=== PATIENT | male | born 1935 | race Caucasian/White ===

== ENCOUNTER → 2017-04-26 | Outpatient (REF) | payer MEDICARE ==
[2017-04-26 13:25] LABS: INR 1.27
== END ==
LOC: M LABDRWAD 12:23
PROVIDERS: ATTEND Internal Medicine Cardiovascular Disease
DX: I48.2 Chronic atrial fibrillation (principal)

== ENCOUNTER → 2017-05-03 | Outpatient (REF) | payer MEDICARE ==
[2017-05-03 13:10] LABS: MEAN CORPUSCULAR HEMOGLOBIN 34.5 pg (27.0-33.0); MEAN CORPUSCULAR HGB CONC 33.3 g/dl (32.0-36.5); MEAN CORPUSCULAR VOLUME 103.5 fl (80.0-96.0); PLATELET COUNT, AUTOMATED 197 10^3/uL (150-450); RED CELL DISTRIBUTION WIDTH 11.9 % (11.5-14.5)
[2017-05-03 14:22] LABS: ALBUMIN 3.7 GM/DL (3.2-5.2); ALBUMIN/GLOBULIN RATIO 1.16 (1.00-1.93); ALKALINE PHOSPHATASE 74 U/L (45-117); ALT/SGPT 17 U/L (12-78); ANION GAP 7 MEQ/L (8-16); AST/SGOT 13 U/L (7-37); BILIRUBIN,TOTAL 0.6 MG/DL (0.2-1.0); BLOOD UREA NITROGEN 17 MG/DL (7-18); CARBON DIOXIDE LEVEL 29 MEQ/L (21-32); CHLORIDE LEVEL 99 MEQ/L (98-107); CREATININE FOR GFR 1.12 MG/DL (0.70-1.30); GLOMERULAR FILTRATION RATE > 60.0 (>35); GLUCOSE, FASTING 122 MG/DL (83-110); SODIUM LEVEL 135 MEQ/L (136-145); TOTAL PROTEIN 6.9 GM/DL (6.4-8.2)
== END ==
LOC: M SFHCADAM 09:19
PROVIDERS: ATTEND Physician Assistant
DX: I48.2 Chronic atrial fibrillation (principal); I25.10 Atherosclerotic heart disease of native coronary artery without angina pectoris

== ENCOUNTER → 2017-05-10 | Outpatient (REF) | payer MEDICARE ==
[2017-05-10 12:48] LABS: INR 2.34
== END ==
LOC: M LABDRWAD 12:16 → M LAB REF 12:16
PROVIDERS: ATTEND Internal Medicine Cardiovascular Disease
DX: I48.2 Chronic atrial fibrillation (principal)

== ENCOUNTER → 2017-06-01 | Outpatient (REF) | payer MEDICARE ==
[2017-06-01 11:33] LABS: INR 2.47
== END ==
LOC: M LAB REF 10:44
PROVIDERS: ATTEND Internal Medicine Cardiovascular Disease
DX: I48.2 Chronic atrial fibrillation (principal)

== ENCOUNTER → 2017-06-11 | Outpatient (REF) | payer MEDICARE | LOC: M LABDRWAD 12:08 | DX: I48.2 Chronic atrial fibrillation (principal) | CPT/HCPCS: 85610 ==

== ENCOUNTER → 2017-06-18 | Outpatient (REF) | payer MEDICARE ==
[2017-06-18 12:38] LABS: INR 1.72; PROTHROMBIN TIME 20.7 SECONDS (12.4-14.5)
== END ==
LOC: M LABDRWAD 12:11
DX: I48.2 Chronic atrial fibrillation (principal)
CPT/HCPCS: 85610

== ENCOUNTER → 2017-06-23 | Outpatient (REF) | payer MEDICARE ==
[2017-06-23 21:59] LABS: INR 2.11; PROTHROMBIN TIME 24.4 SECONDS (12.4-14.5)
== END ==
LOC: M LABDRWAD 20:51
DX: I48.2 Chronic atrial fibrillation (principal)
CPT/HCPCS: 85610

== ENCOUNTER → 2017-07-01 | Outpatient (REF) | payer MEDICARE ==
[2017-07-01 12:42] LABS: INR 2.25; PROTHROMBIN TIME 25.7 SECONDS (12.4-14.5)
== END ==
LOC: M LABDRWAD 12:23
DX: I48.2 Chronic atrial fibrillation (principal)
CPT/HCPCS: 85610

== ENCOUNTER → 2017-07-08 | Outpatient (REF) | payer MEDICARE ==
[2017-07-08 17:06] LABS: INR 1.17; PROTHROMBIN TIME 15.1 SECONDS (12.4-14.5)
== END ==
LOC: M LAB REF 16:21
DX: I48.2 Chronic atrial fibrillation (principal)
CPT/HCPCS: 85610

== ENCOUNTER → 2017-07-15 | Outpatient (REF) | payer MEDICARE ==
[2017-07-15 14:30] LABS: INR 1.19; PROTHROMBIN TIME 15.3 SECONDS (12.4-14.5)
== END ==
LOC: M LAB REF 13:00
DX: I48.2 Chronic atrial fibrillation (principal)
CPT/HCPCS: 85610

== ENCOUNTER → 2017-07-29 | Outpatient (REF) | payer MEDICARE ==
[2017-07-29 20:08] LABS: HEMATOCRIT 35.6 % (42.0-52.0); HEMOGLOBIN 11.6 g/dl (14.0-18.0); MEAN CORPUSCULAR HEMOGLOBIN 34.4 pg (27.0-33.0); MEAN CORPUSCULAR HGB CONC 32.6 g/dl (32.0-36.5); MEAN CORPUSCULAR VOLUME 105.6 fl (80.0-96.0); PLATELET COUNT, AUTOMATED 223 10^3/uL (150-450); RED BLOOD COUNT 3.37 10^6/uL (4.30-6.10); RED CELL DISTRIBUTION WIDTH 11.9 % (11.5-14.5); WHITE BLOOD COUNT 5.3 10^3/uL (4.0-10.0)
[2017-07-29 20:13] LABS: ALBUMIN 3.9 GM/DL (3.2-5.2); ALBUMIN/GLOBULIN RATIO 1.22 (1.00-1.93); ALKALINE PHOSPHATASE 66 U/L (45-117); ALT/SGPT 15 U/L (12-78); ANION GAP 7 MEQ/L (8-16); AST/SGOT 14 U/L (7-37); BILIRUBIN,TOTAL 0.5 MG/DL (0.2-1.0); BLOOD UREA NITROGEN 16 MG/DL (7-18); CALCIUM LEVEL 8.9 MG/DL (8.8-10.2); CARBON DIOXIDE LEVEL 30 MEQ/L (21-32); CHLORIDE LEVEL 101 MEQ/L (98-107); CREATININE FOR GFR 1.01 MG/DL (0.70-1.30); GLOMERULAR FILTRATION RATE > 60.0 (>35); GLUCOSE, FASTING 94 MG/DL (70-100); POTASSIUM SERUM 4.7 MEQ/L (3.5-5.1); SODIUM LEVEL 138 MEQ/L (136-145); TOTAL PROTEIN 7.1 GM/DL (6.4-8.2)
== END ==
LOC: M SFHCADAM 11:18
DX: I48.2 Chronic atrial fibrillation (principal); I87.2 Venous insufficiency (chronic) (peripheral)
CPT/HCPCS: 80053

== ENCOUNTER → 2017-08-12 | Outpatient (REF) | payer MEDICARE ==
[2017-08-12 15:06] LABS: PROTHROMBIN TIME 22.4 SECONDS (12.4-14.5)
== END ==
LOC: M LAB REF 14:42
DX: I48.2 Chronic atrial fibrillation (principal)
CPT/HCPCS: 85610

== ENCOUNTER → 2017-12-09 | Outpatient (REF) | payer MEDICARE ==
[2017-12-09 13:08] LABS: HEMATOCRIT 34.4 % (42.0-52.0); HEMOGLOBIN 11.8 g/dl (13.5-17.5); MEAN CORPUSCULAR HEMOGLOBIN 34.6 pg (27.0-33.0); MEAN CORPUSCULAR HGB CONC 34.3 g/dl (32.0-36.5); MEAN CORPUSCULAR VOLUME 100.9 fl (80.0-96.0); PLATELET COUNT, AUTOMATED 202 10^3/uL (150-450); RED BLOOD COUNT 3.41 10^6/uL (4.30-6.10); RED CELL DISTRIBUTION WIDTH 11.9 % (11.5-14.5); WHITE BLOOD COUNT 5.8 10^3/uL (4.0-10.0)
[2017-12-09 13:52] LABS: FOLATE 10.4 NG/ML; VITAMIN B12 LEVEL 882 PG/ML
[2017-12-09 14:02] LABS: ALBUMIN 3.8 GM/DL (3.2-5.2); ALBUMIN/GLOBULIN RATIO 1.15 (1.00-1.93); ALKALINE PHOSPHATASE 74 U/L (45-117); ALT/SGPT 14 U/L (12-78); ANION GAP 10 MEQ/L (8-16); AST/SGOT 15 U/L (7-37); BILIRUBIN,TOTAL 0.6 MG/DL (0.2-1.0); BLOOD UREA NITROGEN 21 MG/DL (7-18); CALCIUM LEVEL 8.8 MG/DL (8.8-10.2); CARBON DIOXIDE LEVEL 26 MEQ/L (21-32); CHLORIDE LEVEL 97 MEQ/L (98-107); CREATININE FOR GFR 1.12 MG/DL (0.70-1.30); FREE T4 0.98 NG/DL (0.76-1.46); GLOMERULAR FILTRATION RATE > 60.0 (>35); GLUCOSE, FASTING 97 MG/DL (70-100); POTASSIUM SERUM 4.2 MEQ/L (3.5-5.1); SODIUM LEVEL 133 MEQ/L (136-145); TOTAL PROTEIN 7.1 GM/DL (6.4-8.2)
== END ==
LOC: M SFHCADAM 10:32
DX: D75.89 Other specified diseases of blood and blood-forming organs (principal); I48.2 Chronic atrial fibrillation; I25.10 Atherosclerotic heart disease of native coronary artery without angina pectoris
CPT/HCPCS: 82746

== ENCOUNTER → 2018-01-06 | Outpatient (CLI) | payer MEDICARE ==
[2018-01-06 16:40] LABS: INR 2.45; PROTHROMBIN TIME 27.1 SECONDS (12.1-14.4)
== END ==
LOC: M ADAMS 15:08
DX: I48.2 Chronic atrial fibrillation (principal)
CPT/HCPCS: 85610

== ENCOUNTER → 2018-01-20 | Outpatient (CLI) | payer MEDICARE ==
[2018-01-20 15:49] LABS: INR 2.15; PROTHROMBIN TIME 24.4 SECONDS (12.1-14.4)
== END ==
LOC: M ADAMS 14:21
DX: I48.2 Chronic atrial fibrillation (principal)
CPT/HCPCS: 85610

== ENCOUNTER → 2018-03-02 | Outpatient (REF) | payer MEDICARE ==
[2018-03-02 13:28] LABS: INR 2.65; PROTHROMBIN TIME 28.9 SECONDS (12.1-14.4)
== END ==
LOC: M LABDRWAD 12:33
DX: I48.91 Unspecified atrial fibrillation (principal)
CPT/HCPCS: 85610

== ENCOUNTER → 2018-03-16 | Outpatient (REF) | payer MEDICARE ==
[2018-03-16 18:58] LABS: ANION GAP 7 MEQ/L (8-16); BLOOD UREA NITROGEN 20 MG/DL (7-18); CALCIUM LEVEL 8.8 MG/DL (8.8-10.2); CARBON DIOXIDE LEVEL 28 MEQ/L (21-32); CHLORIDE LEVEL 98 MEQ/L (98-107); CREATININE FOR GFR 1.12 MG/DL (0.70-1.30); GLOMERULAR FILTRATION RATE > 60.0 (>35); GLUCOSE, FASTING 83 MG/DL (70-100); POTASSIUM SERUM 4.3 MEQ/L (3.5-5.1); SODIUM LEVEL 133 MEQ/L (136-145); URIC ACID 8.5 MG/DL (3.5-7.2)
== END ==
LOC: M SFHCADAM 15:17
DX: M1A.9XX1 Chronic gout, unspecified, with tophus (tophi) (principal)
CPT/HCPCS: 84550

== ENCOUNTER → 2018-03-16 | Outpatient (CLI) | payer MEDICARE | LOC: M ADAMS 15:17 | DX: M18.11 Unilateral primary osteoarthritis of first carpometacarpal joint, right hand (principal); M11.241 Other chondrocalcinosis, right hand; M19.041 Primary osteoarthritis, right hand; M25.741 Osteophyte, right hand; M1A.9XX1 Chronic gout, unspecified, with tophus (tophi) | CPT/HCPCS: 73130; 84550 ==

== ENCOUNTER → 2018-03-29 | Outpatient (CLI) | payer MEDICARE ==
[2018-03-29 20:03] LABS: PROTHROMBIN TIME 27.5 SECONDS (12.1-14.4)
== END ==
LOC: M ADAMS 14:55
DX: I48.91 Unspecified atrial fibrillation (principal)
CPT/HCPCS: 85610

== ENCOUNTER → 2018-04-12 | Outpatient (REF) | payer MEDICARE ==
[2018-04-12 13:20] LABS: URIC ACID 7.3 MG/DL (3.5-7.2)
== END ==
LOC: M SFHCADAM 11:12
DX: M1A.9XX1 Chronic gout, unspecified, with tophus (tophi) (principal)
CPT/HCPCS: 84550

== ENCOUNTER → 2018-04-26 | Outpatient (REF) | payer MEDICARE ==
[2018-04-26 19:50] LABS: INR 2.29; PROTHROMBIN TIME 25.7 SECONDS (12.1-14.4)
== END ==
LOC: M LABDRWAD 19:16
DX: I48.91 Unspecified atrial fibrillation (principal)
CPT/HCPCS: 85610

== ENCOUNTER → 2018-05-26 | Outpatient (REF) | payer MEDICARE ==
[2018-05-26 20:19] LABS: INR 3.52; PROTHROMBIN TIME 36.1 SECONDS (12.1-14.4)
== END ==
LOC: M LABDRWAD 10:14
DX: I48.91 Unspecified atrial fibrillation (principal)
CPT/HCPCS: 85610

== ENCOUNTER → 2018-06-21 | Outpatient (REF) | payer MEDICARE ==
[2018-06-21 21:06] LABS: INR 2.66; PROTHROMBIN TIME 28.9 SECONDS (12.1-14.4)
== END ==
LOC: M LABDRWAD 19:40
PROVIDERS: ATTEND Internal Medicine Cardiovascular Disease
DX: I48.91 Unspecified atrial fibrillation (principal)

== ENCOUNTER → 2018-06-30 | Outpatient (REF) | payer MEDICARE ==
[2018-06-30 19:36] LABS: RHEUMATOID FACTOR QUANT < 10.0 IU/ML (<15.0); URIC ACID 5.3 MG/DL (3.5-7.2)
== END ==
LOC: M SFHCADAM 11:47
PROVIDERS: ATTEND Physician Assistant
DX: M1A.9XX1 Chronic gout, unspecified, with tophus (tophi) (principal); M15.9 Polyosteoarthritis, unspecified

== ENCOUNTER → 2018-07-21 | Outpatient (REF) | payer MEDICARE ==
[2018-07-21 20:16] LABS: INR 2.18; PROTHROMBIN TIME 24.7 SECONDS (12.1-14.4)
== END ==
LOC: M LAB REF 09:59
PROVIDERS: ATTEND Internal Medicine Cardiovascular Disease
DX: I48.91 Unspecified atrial fibrillation (principal)

== ENCOUNTER → 2018-08-18 | Outpatient (REF) | payer MEDICARE ==
[2018-08-18 12:57] LABS: INR 2.39; PROTHROMBIN TIME 26.6 SECONDS (12.1-14.4)
== END ==
LOC: M LABDRWAD 12:35
PROVIDERS: ATTEND Internal Medicine Cardiovascular Disease
DX: I48.91 Unspecified atrial fibrillation (principal)

== ENCOUNTER → 2018-09-14 | Outpatient (REF) | payer MEDICARE ==
[2018-09-14 17:45] LABS: INR 3.2; PROTHROMBIN TIME 33.5 SECONDS (12.1-14.4)
== END ==
LOC: M LABDRWAD 14:36
PROVIDERS: ATTEND Internal Medicine Cardiovascular Disease
DX: I48.2 Chronic atrial fibrillation (principal)

== ENCOUNTER → 2018-10-14 | Outpatient (REF) | payer MEDICARE ==
[2018-10-14 13:10] LABS: INR 2.86; PROTHROMBIN TIME 30.6 SECONDS (12.1-14.4)
== END ==
LOC: M LABDRWAD 12:08
PROVIDERS: ATTEND Internal Medicine Cardiovascular Disease
DX: I48.91 Unspecified atrial fibrillation (principal)

== ENCOUNTER → 2018-11-15 | Outpatient (REF) | payer MEDICARE ==
[2018-11-15 16:20] LABS: INR 2.29; PROTHROMBIN TIME 25.7 SECONDS (12.1-14.4)
== END ==
LOC: M LABDRWAD 13:01
PROVIDERS: ATTEND Internal Medicine Cardiovascular Disease
DX: I48.91 Unspecified atrial fibrillation (principal)

== ENCOUNTER → 2018-11-15 | Outpatient (REF) | payer MEDICARE ==
[2018-11-15 13:19] LABS: HEMATOCRIT 34.3 % (42.0-52.0); HEMOGLOBIN 11.4 g/dl (13.5-17.5); MEAN CORPUSCULAR HEMOGLOBIN 33.8 pg (27.0-33.0); MEAN CORPUSCULAR HGB CONC 33.2 g/dl (32.0-36.5); MEAN CORPUSCULAR VOLUME 101.8 fl (80.0-96.0); PLATELET COUNT, AUTOMATED 184 10^3/uL (150-450); RED BLOOD COUNT 3.37 10^6/uL (4.30-6.10); WHITE BLOOD COUNT 5.8 10^3/uL (4.0-10.0)
[2018-11-15 14:09] LABS: ALBUMIN 3.7 GM/DL (3.2-5.2); ALT/SGPT 16 U/L (12-78); BILIRUBIN,TOTAL 0.6 MG/DL (0.2-1.0); BLOOD UREA NITROGEN 22 MG/DL (7-18); CALCIUM LEVEL 8.8 MG/DL (8.8-10.2); CARBON DIOXIDE LEVEL 27 MEQ/L (21-32); CHLORIDE LEVEL 100 MEQ/L (98-107); CREATININE FOR GFR 1.21 MG/DL (0.70-1.30); GLOMERULAR FILTRATION RATE > 60.0 (>35); GLUCOSE, FASTING 92 MG/DL (70-100); SODIUM LEVEL 136 MEQ/L (136-145); TOTAL PROTEIN 7.3 GM/DL (6.4-8.2)
== END ==
LOC: M SFHCADAM 11:39
PROVIDERS: ATTEND Physician Assistant
DX: I48.2 Chronic atrial fibrillation (principal); I25.10 Atherosclerotic heart disease of native coronary artery without angina pectoris; M15.9 Polyosteoarthritis, unspecified

== ENCOUNTER → 2018-11-30 | Outpatient (REF) | payer MEDICARE ==
[2018-11-30 13:08] LABS: CALCIUM LEVEL 9.4 MG/DL (8.8-10.2); CREATININE FOR GFR 1.31 MG/DL (0.70-1.30); GLOMERULAR FILTRATION RATE 55.4 (>35)
== END ==
LOC: M SFHCADAM 10:10
PROVIDERS: ATTEND Physician Assistant
DX: I87.2 Venous insufficiency (chronic) (peripheral) (principal)

== ENCOUNTER → 2019-01-18 | Outpatient (REF) | payer MEDICARE ==
[2019-01-18 20:50] LABS: INR 1.95
== END ==
LOC: M LABDRWAD 19:24
PROVIDERS: ATTEND Internal Medicine Cardiovascular Disease
DX: I48.2 Chronic atrial fibrillation (principal)

== ENCOUNTER → 2019-02-16 | Outpatient (REF) | payer MEDICARE ==
[2019-02-16 13:20] LABS: INR 2.64; PROTHROMBIN TIME 28.1 SECONDS (11.8-14.0)
== END ==
LOC: M LABDRWAD 12:10
PROVIDERS: ATTEND Internal Medicine Cardiovascular Disease
DX: I48.2 Chronic atrial fibrillation (principal)

== ENCOUNTER → 2019-03-02 | Outpatient (CLI) | payer MEDICARE ==
--- NOTE | 2019-03-02 16:28 | REP ---
ULTRASOUND ANTERIOR WALL OF PELVIS: Real-time sonographic evaluation of the anterior wall of the pelvis performed on the right at the site of a suspected hernia. There is an anterior pelvic wall hernia near the pubis. Peristalsing bowel loops are seen protruding through the abdominal wall. The defect measures 2.5 x 3.5 cm.
== END ==
LOC: M WHC 12:46
PROVIDERS: ATTEND Physician Assistant
DX: K43.9 Ventral hernia without obstruction or gangrene (principal); K40.90 Unilateral inguinal hernia, without obstruction or gangrene, not specified as recurrent

== ENCOUNTER → 2019-03-13 | Outpatient (REF) | payer MEDICARE ==
[~2019-03-13] MED LIST: ALLO10TA PO; CEPH500C PO; COQ1100C4 PO; D31000TA PO; FISH1000 PO; KETO2CR EXT; LOSA25TA14 PO; METO1TAB7 PO; MONT10TA2 PO; MYRB25TA PO; NORC1TAB8 PO; PRAV40TA2 PO; RISP0.5T21 PO; SPIR-10 PO; TORS100T PO; TRIA1OI TOP; WARF-23 PO; WARF4TAB52 PO
[2019-03-13 20:00] LABS: INR 1.56; PROTHROMBIN TIME 18.4 SECONDS (11.8-14.0)
== END ==
LOC: M LABDRWAD 19:08
PROVIDERS: ATTEND Internal Medicine Cardiovascular Disease
DX: I48.2 Chronic atrial fibrillation (principal)

== ENCOUNTER → 2019-03-29 | Outpatient (REF) | payer MEDICARE ==
[2019-03-29 19:51] LABS: INR 2.76
== END ==
LOC: M LABDRWAD 19:16
PROVIDERS: ATTEND Internal Medicine Cardiovascular Disease
DX: I48.20 Chronic atrial fibrillation, unspecified (principal)

== ENCOUNTER 2019-05-04 23:25 | Observation (INO) | payer MEDICARE ==
[~2019-05-04] VITALS: Ht 182.9 cm; Wt 90.2 kg
[2019-05-05 00:18] LABS: BASO % 0.2 % (0.0-1.0); EOS # 0.1 10^3/uL (0.0-0.5); EOS % 0.8 % (0.0-3.0); HEMATOCRIT 33.8 % (42.0-52.0); HEMOGLOBIN 11.2 g/dl (13.5-17.5); LYMPH # 0.9 10^3/uL (1.5-5.0); LYMPH % 10.8 % (24.0-44.0); MEAN CORPUSCULAR HEMOGLOBIN 33.9 pg (27.0-33.0); MEAN CORPUSCULAR HGB CONC 33.1 g/dl (32.0-36.5); MEAN CORPUSCULAR VOLUME 102.4 fl (80.0-96.0); MONO # 1.1 10^3/uL (0.0-0.8); MONO % 12.2 % (0.0-5.0); NEUTROPHILS # 6.6 10^3/uL (1.5-8.5); NEUTROPHILS % 75.7 % (36.0-66.0); PLATELET COUNT, AUTOMATED 203 10^3/uL (150-450); WHITE BLOOD COUNT 8.7 10^3/uL (4.0-10.0)
--- NOTE | 2019-05-05 00:21 | REPVR ---
PROCEDURE INFORMATION: Exam: CT Head Without Contrast Exam date and time: 05/04/2019 12:05 AM Age: 83 years old Clinical history: Pain; Other: Fall; Additional info: Fall/coumadin TECHNIQUE: Imaging protocol: Computed tomography of the head without contrast. Radiation optimization: All CT scans at this facility use at least one of these dose optimization techniques: automated exposure control; mA and/or kV adjustment per patient size (includes targeted exams where dose is matched to clinical indication); or iterative reconstruction. COMPARISON: No relevant prior studies available. FINDINGS: Brain: There is diffuse cortical atrophy and hypoattenuation of the deep white matter. No acute hemorrhage. Ventricles: Unremarkable. No ventriculomegaly. Bones/joints: Unremarkable. No acute fracture. Sinuses: Unremarkable as visualized. No acute sinusitis. Mastoid air cells: Unremarkable as visualized. No mastoid effusion. Soft tissues: Unremarkable. IMPRESSION: No acute intracranial process. 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 Electronically signed by: Albert Cohen On 05/05/2019 00:21:07 AM
[2019-05-05 00:33] LABS: INR 2.76
[2019-05-05 00:34] LABS: PARTIAL THROMBOPLASTIN TIME 63.1 SECONDS (25.0-38.4)
[2019-05-05] MEDS ORDERED: KETO2CR EXT (00:34)
[2019-05-05] MEDS ORDERED: PRAV40TA2 PO (00:34)
[2019-05-05] MEDS ORDERED: ALLO10TA PO (00:34)
[2019-05-05] MEDS ORDERED: MYRB25TA PO (00:34)
[2019-05-05] MEDS ORDERED: METO1TAB7 PO (00:34)
[2019-05-05] MEDS ORDERED: MONT10TA4 PO (00:34)
[2019-05-05] MEDS ORDERED: TORS100T PO (00:34)
[2019-05-05] MEDS ORDERED: LOSA25TA14 PO (00:34)
[2019-05-05] MEDS ORDERED: CEPH500C PO (00:34)
[2019-05-05] MEDS ORDERED: WARF4TAB52 PO (00:34)
[2019-05-05] MEDS ORDERED: SPIR-10 PO (00:34)
[2019-05-05] MEDS ORDERED: WARF-23 PO (00:34)
[2019-05-05] MEDS ORDERED: FISH1000 PO (00:37)
[2019-05-05] MEDS ORDERED: D31000TA PO (00:37)
[2019-05-05] MEDS ORDERED: NORC1TAB8 PO (00:37)
[2019-05-05] MEDS ORDERED: COQ1100C4 PO (00:37)
[2019-05-05 00:38] LABS: CALCIUM LEVEL 8.7 MG/DL (8.8-10.2); CREATININE FOR GFR 1.4 MG/DL (0.70-1.30); GLOMERULAR FILTRATION RATE 51.3 (>35)
--- NOTE | 2019-05-05 01:46 | HPEPDOC ---
General Date of Admission 05/05/19 Date of Service: May 05, 2019 Chief Complaint The patient is a 83-year-old male admitted with a reason for visit of FALL. Source: Patient, Family Exam Limitations: No limitations Timing/Duration: Day(s) Severity: Mild Associated Symptoms: Mechanical fall History of Present Illness Patient is 83 years old male with past medical history of coronary artery diseases, atrial fibrillation on Coumadin, GABG, pacemaker presented hospital after increased frequency of mechanical fall. Patient stated that for past 2 days he had a few mechanical falls when he changed position of his body. Patient denied any syncope, loss of consciousness, seizures. Patient described that he developed weakness in his legs and he fell. Patient lives in assisted living facility by himself. Patient didn't have any fever, chills, nausea, vomiting, diarrhea or dysuria. According to family members his physical condition for past few months declined. In emergency room head CT was ordered and didn't show any acute bleed, blood workup did not reveal leukocytosis. Patient is normotensive with heart rate around 75. Home Medications Scheduled Allopurinol (Allopurinol) 100 Mg Tablet, 100 MG PO DAILY, (Reported) Cephalexin (Cephalexin) 500 Mg Capsule, 500 MG PO BID, (Reported) Cholecalciferol (Vitamin D3) (Vitamin D3) 1,000 Unit Tablet, 1,000 UNIT PO DAILY, (Reported) Ketoconazole (Ketoconazole) 15 Gm Cream..g., 1 DOSE EXT BID, (Reported) APPLIES UNDER STOMACH FOLDS Losartan Potassium (Losartan Potassium) 25 Mg Tablet, 25 MG PO DAILY, (Reported) Metoprolol Succinate (Metoprolol Succinate) 50 Mg Tab.er.24h, 50 MG PO DAILY, (Reported) Mirabegron (Myrbetriq) 25 Mg Tab.er.24h, 25 MG PO DAILY, (Reported) Montelukast Sodium (Montelukast Sodium) 10 Mg Tablet, 10 MG PO QPM, (Reported) TAKES AT 1800 Crump-3 Fatty Acids/Fish Oil (Fish Oil 1,000 mg Capsule) 1 Each Capsule, 1,000 MG PO QPM, (Reported) TAKES AT 1800 Pravastatin Sodium (Pravastatin Sodium) 40 Mg Tablet, 40 MG PO QPM, (Reported) TAKES AT 1800 Spironolactone (Spironolactone) 25 Mg Tablet, 25 MG PO DAILY, (Reported) Torsemide (Torsemide) 100 Mg Tablet, 100 MG PO DAILY, (Reported) Ubidecarenone (Co Q-10) 100 Mg Capsule, 100 MG PO QPM, (Reported) TAKES AT 1800 Warfarin Sodium (Warfarin Sodium) 1 Mg Tablet, 1 MG PO QPM, (Reported) TAKES WITH 5MG FOR 6MG TOTAL AT 1800 Warfarin Sodium (Warfarin Sodium) 5 Mg Tablet, 5 MG PO QPM, (Reported) TAKES WITH 1MG FOR 6MG TOTAL AT 1800 Scheduled PRN Hydrocodone/Acetaminophen ([place] 7.5-325 Tablet) 1 Each Tablet, 1 TAB PO Q6H PRN for PAIN, (Reported) Allergies Coded Allergies: No Known Allergies (Unverified , 05/04/19) Past Medical History Medical History coronary artery diseases, atrial fibrillation on Coumadin, GABG, pacemaker, hypertension, peripheral vascular diseases, mitral wall prolapse Surgical History CABG, mitral valve prolapse repair, pacemaker placement Family History I reviewed family history and found unremarkable Social History * Smoker: former Smoker Alcohol: occationally Drugs: denies A-FIB/CHADSVASC A-FIB History Current/History of A-Fib/PAF?: Yes Current PO Anticoag Therapy: Yes Review of Systems Constitutional: Reports: Weakness; Denies: Chills, Fever Eyes: Denies: Pain, Vision change ENT: Denies: Head Aches, Ear Pain Skin: Denies: Rash, Lesions Pulmonary: Denies: Dyspnea, Cough Cardiovascular: Denies: Chest Pain, Palpitations Gastrointestinal: Denies: Nausea, Vomiting Genitourinary: Denies: Dysuria, Frequency Hematologic: Denies: Bruising, Bleeding Excessively Endocrine: Denies: Polydipsia, Polyphagia Musculoskeletal: Denies: Neck Pain, Back Pain Neurological: Denies: Numbness, Change in speech Psych: Reports: Mood Normal Physical Examination General Exam: Positive: Alert, Cooperative Eye Exam: Positive: PERRLA, Conjunctiva & lids normal ENT Exam: Positive: Atraumatic, Mucous membr. moist/pink Neck Exam: Positive: Supple; Negative: JVD Chest Exam: Positive: Clear to auscultation Heart Exam: Positive: Irregular Rhythm; Negative: Rate Normal Telemetry: Positive: Atrial fibrillation Abdomen Exam: Positive: Normal bowel sounds Extremity Exam: Negative: Clubbing, Cyanosis Skin Exam: Positive: Nl turgor and temperature Neuro Exam: Positive: Normal Gait, Strength at 5/5 X4 ext, Cranial Nerves 3-12 NL Psych Exam: Positive: Mental status NL Vital Signs Vital Signs Date Time Temp Pulse Resp B/P (MAP) Pulse Ox O2 Delivery O2 Flow Rate FiO2 05/05/19 00:53 70 19 117/57 (77) 97 Room Air 05/04/19 23:37 98.8 Laboratory Data Labs 24H Laboratory Tests 2 05/05/19 00:04: Immature Granulocyte % (Auto) 0.3, Neutrophils (%) (Auto) 75.7H, Lymphocytes (%) (Auto) 10.8L, Monocytes (%) (Auto) 12.2H, Eosinophils (%) (Auto) 0.8, Basophils (%) (Auto) 0.2, Neutrophils # (Auto) 6.6, Lymphocytes # (Auto) 0.9L, Monocytes # (Auto) 1.1H, Eosinophils # (Auto) 0.1, Basophils # (Auto) 0.0, Nucleated Red Blood Cells % (auto) 0.0, Prothrombin Time 29.0H, Prothromb Time International Ratio 2.76, Activated Partial Thromboplast Time 63.1H, Anion Gap 10, Glomerular Filtration Rate 51.3, Calcium Level 8.7L CBC/BMP Laboratory Tests 05/05/19 00:04 Assessment/Plan Patient is 83 years old male with past medical history of coronary artery diseases, atrial fibrillation on Coumadin, GABG, pacemaker presented hospital after increased frequency of mechanical fall. Patient stated that for past 2 days he had a few mechanical falls when he changed position of his body. Problems (1) Unable to ambulate Status: Chronic Problem Text: Most likely secondary to deconditioning patient developed frequent falls Patient does not have fever, chills, leukocytosis, no any focal deficiency or electrolytes abnormalities. PT/OT evaluation (2) Impaired activities of daily living Status: Chronic Problem Text: See above Plan / VTE VTE Prophylaxis Ordered?: Yes PAT SALGADO DO May 05, 2019 01:46
[2019-05-05 03:31] VITALS: BP 136/62
[2019-05-05 07:43] VITALS: BP 133/64
[2019-05-05] MEDS ORDERED: KETOCONAZOLE 2% CREAM EXT SCH (09:00)
[2019-05-05] MEDS: LOSARTAN 25 MG TAB PO SCH (09:11)
[2019-05-05] MEDS: VITAMIN D 1,000 INTERNATIONAL UNITS TABLET PO SCH (09:11)
[2019-05-05] MEDS: SPIRONOLACTONE 25 MG TAB PO SCH (09:11)
[2019-05-05] MEDS: allopurinoL 100 MG TAB PO SCH (09:11)
[2019-05-05] MEDS: TORSEMIDE 100 MG TAB PO SCH (09:11)
[2019-05-05] MEDS: METOPROLOL SUCC (TopROL XL) 50MG **XL** TAB PO SCH (09:12)
[2019-05-05 12:00] VITALS: BP 136/60
--- NOTE | 2019-05-05 13:12 | ECGEPIP ---
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
--- NOTE | 2019-05-05 13:44 | IPNPDOC ---
Subjective Date Seen The patient was seen on 05/05/19. Subjective Chief Complaint/HPI No complaints today Constitutional: Denies: Chills, Fever Pulmonary: Denies: Dyspnea, Cough Gastrointestinal: Denies: Nausea, Vomiting, Abdominal Pain Genitourinary: Denies: Dysuria Objective Physical Examination General Exam: Positive: Alert, Cooperative, No Acute Distress Neck Exam: Positive: Supple; Negative: JVD Chest Exam: Positive: Clear to auscultation; Negative: Rales, Rhonchi, Wheezing Heart Exam: Positive: Irregular Rhythm; Negative: Rate Normal Telemetry: Positive: Atrial fibrillation Abdomen Exam: Positive: Normal bowel sounds, Soft; Negative: Tenderness Extremity Exam: Positive: Edema, Other (Right great toe with gouty ulceration on dorsal aspect. Slight surrounding erythema); Negative: Clubbing, Cyanosis Skin Exam: Positive: Nl turgor and temperature, Other skin issue (Localized patch of raised erythematousj confluent papules in suprapubic area. Bullseye lesion on left proximal medial thigh/groin region) Psych Exam: Positive: Mental status NL Assessment /Plan Problems (1) Rash Status: Acute Problem Text: B inner proximal thighs (kissing lesions) and anterior abdomen at diaper line favor bullous impetigo > tinea (partially rxed c cephalexin, keto cr) c acute eczematous rxn 2 infection/irritant dermatitis (2 incontinent urine) 05/05 + cephalo BID, Lotrisone BID (2) Frequent falls Status: Acute Problem Text: per history paroxysmal episodes of weakness, favoring positional change favor orthostatic hypotension (2 , high dose diuretic dose +/- autonomic dysfx 2 PD-shuffling gait c mild cogwheel rigidity) 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 Garg GEt plain film to evaluate for bony involvement (4) Chronic systolic CHF (congestive heart failure) Status: Chronic Response to Treatment: Stable Problem Text: Euvolemic on HD torse 100, rosibel 25, met suc 50 (5) CAD (coronary artery disease) Status: Chronic Response to Treatment: Stable (6) Atrial fibrillation Status: Chronic Response to Treatment: Stable Problem Text: AC VKA 05/05 2.8 RC met suc (7) CKD (chronic kidney disease), stage III Status: Chronic Response to Treatment: Stable Problem Text: at baseline cr ~1.3 Plan/VTE VTE Prophylaxis Ordered?: Yes (Coumadin) Disposition Get PT - if safe for d/c will send home, but may need placement VS, I&O, 24H, Fishbone Vital Signs/I&O Vital Signs Date Time Temp Pulse Resp B/P (MAP) Pulse Ox O2 Delivery O2 Flow Rate FiO2 05/05/19 12:00 97.6 69 18 136/60 (85) 96 Room Air Laboratory Data 24H LABS Laboratory Tests 2 05/05/19 00:04: Immature Granulocyte % (Auto) 0.3, Neutrophils (%) (Auto) 75.7H, Lymphocytes (%) (Auto) 10.8L, Monocytes (%) (Auto) 12.2H, Eosinophils (%) (Auto) 0.8, Basophils (%) (Auto) 0.2, Neutrophils # (Auto) 6.6, Lymphocytes # (Auto) 0.9L, Monocytes # (Auto) 1.1H, Eosinophils # (Auto) 0.1, Basophils # (Auto) 0.0, Nucleated Red Blood Cells % (auto) 0.0, Prothrombin Time 29.0H, Prothromb Time International Ratio 2.76, Activated Partial Thromboplast Time 63.1H, Anion Gap 10, Glomerular Filtration Rate 51.3, Calcium Level 8.7L CBC/BMP Laboratory Tests 05/05/19 00:04 FREDERIC BOB PA-C May 05, 2019 13:44 Jus Cole M.D. May 05, 2019 16:55
[2019-05-05 16:00] VITALS: BP 144/64
--- NOTE | 2019-05-05 16:22 | REP ---
Four views right foot: 05/05/2019. Indication: Right foot pain. Comparison: None. Findings: No definite erosive osseous lesions are detected. Extensive osteoarthritic findings are present predominately involving the right great toe. There is no evidence of acute fracture. Atherosclerotic peripheral vascular disease is noted. Diffuse osteopenia is present. Multiple surgical clips are noted within the peritibial region. Impression: No definite osteomyelitis. Extensive degenerative sequelae of predominately involving the right great toe as described. Electronically Signed by Clayton Espinal DO 05/05/2019 04:14 P
[2019-05-05] MEDS: MONTELUKAST 10 MG TAB PO SCH (18:28)
[2019-05-05] MEDS: WARFARIN SOD 5 MG TAB PO SCH (18:28)
[2019-05-05] MEDS: WARFARIN SOD 1 MG TAB PO SCH (18:28)
[2019-05-05] MEDS: PRAVASTATIN 20 MG TAB PO SCH (18:28)
[2019-05-05] MEDS: CEPHALEXIN 500 MG CAP PO SCH (20:25)
[2019-05-05] MEDS: CLOTRIMAZOLE 1% TOPICAL CREAM 30GM TOP SCH (20:26)
[2019-05-05] MEDS: TRIAMCINOLONE ACET 0.1% OINTMENT 15 GM TOP SCH (20:40)
[2019-05-05] MEDS ORDERED: TRIAMCINOLONE ACET 0.1% OINTMENT 80 GM TOP SCH (21:00)
[2019-05-06] VITALS: BP 114/55
[2019-05-06 06:19] LABS: HEMATOCRIT 31.2 % (42.0-52.0); HEMOGLOBIN 10.6 g/dl (13.5-17.5); MEAN CORPUSCULAR HEMOGLOBIN 34.5 pg (27.0-33.0); MEAN CORPUSCULAR VOLUME 101.6 fl (80.0-96.0); PLATELET COUNT, AUTOMATED 193 10^3/uL (150-450); RED BLOOD COUNT 3.07 10^6/uL (4.30-6.10); WHITE BLOOD COUNT 5.4 10^3/uL (4.0-10.0)
[2019-05-06 06:30] LABS: INR 2.31; PROTHROMBIN TIME 25.2 SECONDS (11.8-14.0)
[2019-05-06 06:37] LABS: BLOOD UREA NITROGEN 28 MG/DL (7-18); CALCIUM LEVEL 8.5 MG/DL (8.8-10.2); CARBON DIOXIDE LEVEL 26 MEQ/L (21-32); CHLORIDE LEVEL 101 MEQ/L (98-107); CREATININE FOR GFR 1.06 MG/DL (0.70-1.30); GLOMERULAR FILTRATION RATE > 60.0 (>35); GLUCOSE, FASTING 86 MG/DL (70-100); MAGNESIUM LEVEL 2.1 MG/DL (1.8-2.4); POTASSIUM SERUM 3.4 MEQ/L (3.5-5.1); SODIUM LEVEL 135 MEQ/L (136-145)
[2019-05-06 08:00] VITALS: BP 116/56
[2019-05-06] MEDS: VITAMIN D 1,000 INTERNATIONAL UNITS TABLET PO SCH (09:24)
[2019-05-06] MEDS: CEPHALEXIN 500 MG CAP PO SCH ×2 (09:25→20:17)
[2019-05-06] MEDS: METOPROLOL SUCC (TopROL XL) 50MG **XL** TAB PO SCH (09:25)
[2019-05-06] MEDS: TORSEMIDE 100 MG TAB PO SCH (09:25)
[2019-05-06] MEDS: TRIAMCINOLONE ACET 0.1% OINTMENT 15 GM TOP SCH ×2 (09:26→20:17)
[2019-05-06] MEDS: allopurinoL 100 MG TAB PO SCH (09:26)
[2019-05-06] MEDS: LOSARTAN 25 MG TAB PO SCH (09:26)
[2019-05-06] MEDS: SPIRONOLACTONE 25 MG TAB PO SCH (09:27)
[2019-05-06] MEDS: CLOTRIMAZOLE 1% TOPICAL CREAM 30GM TOP SCH ×2 (09:27→20:17)
[2019-05-06] MEDS ORDERED: POTASSIUM CHLORIDE 10 MEQ SR TABLET PO ONE (10:00)
[2019-05-06 12:00] VITALS: BP 125/57
[2019-05-06 14:00] VITALS: BP 122/60
[2019-05-06] MEDS: WARFARIN SOD 5 MG TAB PO SCH (17:35)
[2019-05-06] MEDS: WARFARIN SOD 1 MG TAB PO SCH (17:35)
[2019-05-06] MEDS: PRAVASTATIN 20 MG TAB PO SCH (17:35)
[2019-05-06] MEDS: MONTELUKAST 10 MG TAB PO SCH (17:35)
--- NOTE | 2019-05-06 19:26 | IPNPDOC ---
Subjective Date Seen The patient was seen on 05/06/19. Subjective Chief Complaint/HPI Mr. Mujica had a P/T evaluation done yesterday that determined that at present he is not safe for discharge and should go to rehab after he is medically cleared. His thigh lesions seem to be improving. There are no other major complaints. General: Reports: Normal Appetite Skin: Reports: Rash (reportedly improving some) Pulmonary: Denies: Dyspnea, Cough Cardiovascular: Denies: Chest Pain, Palpitations Genitourinary: Denies: Dysuria Psych: Reports: Mood Normal Objective Physical Examination General Exam: Positive: Alert, Cooperative (laying in bed resting when I entered the room), No Acute Distress Eye Exam: Positive: Conjunctiva & lids normal; Negative: Sclera icteric ENT Exam: Positive: Mucous membr. moist/pink Neck Exam: Positive: Supple; Negative: Lymphadenopathy Chest Exam: Positive: Clear to auscultation; Negative: Rhonchi, Wheezing Heart Exam: Positive: Irregular Rhythm; Negative: Rate Normal Telemetry: Positive: Atrial fibrillation Abdomen Exam: Positive: Normal bowel sounds, Soft; Negative: Tenderness Extremity Exam: Positive: Edema, Other (Right great toe with gouty ulceration on dorsal aspect. Slight surrounding erythema); Negative: Clubbing, Cyanosis Skin Exam: Positive: Nl turgor and temperature, Other skin issue (Localized patch of raised erythematous confluent papules in suprapubic area. Bullseye lesion on left proximal medial thigh/groin region) Psych Exam: Positive: Mental status NL Assessment /Plan Problems (1) Rash Status: Acute Problem Text: B inner proximal thighs (kissing lesions) and anterior abdomen at diaper line favor bullous impetigo > tinea (partially rxed c cephalexin, keto cr) c acute eczematous rxn 2 infection/irritant dermatitis (2 incontinent urine) 05/05 + cephalo BID, Lotrisone BID (2) Frequent falls Status: Acute Problem Text: 05/06 - P/T has recommended additional therapy after he is medical stabilized. 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 Garg GEt plain film to evaluate for bony involvement (4) Chronic systolic CHF (congestive heart failure) Status: Chronic Response to Treatment: Stable Problem Text: Euvolemic on HD torse 100, rosibel 25, met suc 50 (5) CAD (coronary artery disease) Status: Chronic Response to Treatment: Stable (6) Atrial fibrillation Status: Chronic Response to Treatment: Stable Problem Text: AC VKA 05/05 2.8 RC met suc (7) CKD (chronic kidney disease), stage III Status: Chronic Response to Treatment: Stable Problem Text: at baseline cr ~1.3 Plan/VTE VTE Prophylaxis Ordered?: Yes (Coumadin) VS, I&O, 24H, Fishbone Vital Signs/I&O Vital Signs Date Time Temp Pulse Resp B/P (MAP) Pulse Ox O2 Delivery O2 Flow Rate FiO2 05/06/19 14:00 97.6 78 16 122/60 (80) 99 Room Air I&O- Last 24 Hours up to 6 AM 05/06/19 05:59 Intake Total 1350 ml Output Total 1250 ml Balance 100 ml Laboratory Data 24H LABS Laboratory Tests 2 05/06/19 05:59: Nucleated Red Blood Cells % (auto) 0.0, Prothrombin Time 25.2H, Prothromb Time International Ratio 2.31, Anion Gap 8, Glomerular Filtration Rate > 60.0, Calcium Level 8.5L, Magnesium Level 2.1 CBC/BMP Laboratory Tests 05/06/19 05:59 Chris Anne MD May 06, 2019 19:26
[2019-05-06 22:00] VITALS: BP 129/71
[2019-05-07 00:06] LABS: Lyme Disease IgG/IgM Antibodie <0.91 ISR (0.00-0.90); Lyme Disease IgM Ab Quantitati <0.80 index (0.00-0.79)
[2019-05-07 06:00] VITALS: BP 127/76
[2019-05-07 06:13] LABS: HEMATOCRIT 31.8 % (42.0-52.0); HEMOGLOBIN 10.6 g/dl (13.5-17.5); MEAN CORPUSCULAR HEMOGLOBIN 34.4 pg (27.0-33.0); MEAN CORPUSCULAR HGB CONC 33.3 g/dl (32.0-36.5); MEAN CORPUSCULAR VOLUME 103.2 fl (80.0-96.0); PLATELET COUNT, AUTOMATED 214 10^3/uL (150-450); RED BLOOD COUNT 3.08 10^6/uL (4.30-6.10); WHITE BLOOD COUNT 5.6 10^3/uL (4.0-10.0)
[2019-05-07 06:38] LABS: ALBUMIN 2.9 GM/DL (3.2-5.2); ALT/SGPT 12 U/L (12-78); BILIRUBIN,TOTAL 0.7 MG/DL (0.2-1.0); BLOOD UREA NITROGEN 23 MG/DL (7-18); CALCIUM LEVEL 8.6 MG/DL (8.8-10.2); CARBON DIOXIDE LEVEL 29 MEQ/L (21-32); CHLORIDE LEVEL 100 MEQ/L (98-107); CREATININE FOR GFR 1.12 MG/DL (0.70-1.30); GLOMERULAR FILTRATION RATE > 60.0 (>35); GLUCOSE, FASTING 90 MG/DL (70-100); POTASSIUM SERUM 3.6 MEQ/L (3.5-5.1); SODIUM LEVEL 136 MEQ/L (136-145); TOTAL PROTEIN 6.9 GM/DL (6.4-8.2)
[2019-05-07] MEDS: allopurinoL 100 MG TAB PO SCH (09:04)
[2019-05-07] MEDS: SPIRONOLACTONE 25 MG TAB PO SCH (09:04)
[2019-05-07] MEDS: TORSEMIDE 100 MG TAB PO SCH (09:04)
[2019-05-07] MEDS: CEPHALEXIN 500 MG CAP PO SCH ×2 (09:04→20:36)
[2019-05-07] MEDS: VITAMIN D 1,000 INTERNATIONAL UNITS TABLET PO SCH (09:04)
[2019-05-07] MEDS: METOPROLOL SUCC (TopROL XL) 50MG **XL** TAB PO SCH (09:05)
[2019-05-07] MEDS: LOSARTAN 25 MG TAB PO SCH (09:05)
[2019-05-07] MEDS: TRIAMCINOLONE ACET 0.1% OINTMENT 15 GM TOP SCH ×2 (09:06→20:36)
[2019-05-07] MEDS: CLOTRIMAZOLE 1% TOPICAL CREAM 30GM TOP SCH ×2 (09:06→20:36)
[2019-05-07 14:00] VITALS: BP 130/65
--- NOTE | 2019-05-07 17:38 | IPN ---
DATE: 05/07/2019 José is seen with his son and [id number]. I do not have previous concerns with his rash, but per description and the patient's assessment it has gotten significantly better on his current regimen. Lyme test was negative. PHYSICAL EXAMINATION: Afebrile. Vital signs stable. 138/76, oxygen saturation 99% on room air. GENERAL APPEARANCE: Alert, conversant, visiting with family. His rash looks improved by description compared to previous assessments. LABORATORIES: Complete blood count (CBC) unremarkable. Electrolytes unremarkable. PLAN: At this point, he looks like he has achieved maximal medical improvement with his rash, frequent falls, systolic congestive heart failure (CHF) and atrial fibrillation. He is currently living at [facility], but I am not sure that he is well enough to return to that. I will ask for a home safety evaluation tomorrow. Family would like patient and family services (PFS) to contact them tomorrow as they would like this patient placed at [facility] if he no longer can stay at [facility]. This disposition can be attended to tomorrow.
[2019-05-07] MEDS: MONTELUKAST 10 MG TAB PO SCH (17:50)
[2019-05-07] MEDS: PRAVASTATIN 20 MG TAB PO SCH (17:50)
[2019-05-07] MEDS: WARFARIN SOD 5 MG TAB PO SCH (17:50)
[2019-05-07] MEDS: WARFARIN SOD 1 MG TAB PO SCH (17:51)
[2019-05-07 22:00] VITALS: BP 128/71
[2019-05-08 06:00] VITALS: BP 129/75
[2019-05-08 07:46] LABS: INR 2.09; PROTHROMBIN TIME 23.2 SECONDS (11.8-14.0)
[2019-05-08 08:05] LABS: BLOOD UREA NITROGEN 21 MG/DL (7-18); CARBON DIOXIDE LEVEL 27 MEQ/L (21-32); CHLORIDE LEVEL 104 MEQ/L (98-107); CREATININE FOR GFR 1.16 MG/DL (0.70-1.30); GLOMERULAR FILTRATION RATE > 60.0 (>35); GLUCOSE, FASTING 85 MG/DL (70-100); POTASSIUM SERUM 3.8 MEQ/L (3.5-5.1); SODIUM LEVEL 138 MEQ/L (136-145)
[2019-05-08] MEDS: CLOTRIMAZOLE 1% TOPICAL CREAM 30GM TOP SCH ×2 (08:54→20:27)
[2019-05-08 08:55] LABS: HEMATOCRIT 33.7 % (42.0-52.0); HEMOGLOBIN 11.2 g/dl (13.5-17.5); MEAN CORPUSCULAR HEMOGLOBIN 34.1 pg (27.0-33.0); MEAN CORPUSCULAR HGB CONC 33.2 g/dl (32.0-36.5); MEAN CORPUSCULAR VOLUME 102.7 fl (80.0-96.0); PLATELET COUNT, AUTOMATED 222 10^3/uL (150-450); RED BLOOD COUNT 3.28 10^6/uL (4.30-6.10); WHITE BLOOD COUNT 5.3 10^3/uL (4.0-10.0)
[2019-05-08] MEDS: LOSARTAN 25 MG TAB PO SCH (08:55)
[2019-05-08] MEDS: allopurinoL 100 MG TAB PO SCH (08:55)
[2019-05-08] MEDS: METOPROLOL SUCC (TopROL XL) 50MG **XL** TAB PO SCH (08:55)
[2019-05-08] MEDS: VITAMIN D 1,000 INTERNATIONAL UNITS TABLET PO SCH (08:55)
[2019-05-08] MEDS: SPIRONOLACTONE 25 MG TAB PO SCH (08:55)
[2019-05-08] MEDS: CEPHALEXIN 500 MG CAP PO SCH ×2 (08:55→20:26)
[2019-05-08] MEDS: TRIAMCINOLONE ACET 0.1% OINTMENT 15 GM TOP SCH ×2 (08:55→20:26)
[2019-05-08] MEDS: TORSEMIDE 100 MG TAB PO SCH (08:55)
[2019-05-08] MEDS: PRAVASTATIN 20 MG TAB PO SCH (17:19)
[2019-05-08] MEDS: WARFARIN SOD 1 MG TAB PO SCH (17:20)
[2019-05-08] MEDS: MONTELUKAST 10 MG TAB PO SCH (17:20)
[2019-05-08] MEDS: WARFARIN SOD 5 MG TAB PO SCH (17:20)
[2019-05-08 22:00] VITALS: BP 155/67
[2019-05-09] MEDS: ANEXSIA, NORCO 7.5MG/325MG TABLET(HYDROCODONE/APAP) PO PRN ×2 (00:49→17:23)
[2019-05-09 06:00] VITALS: BP 136/76
[2019-05-09 06:28] LABS: HEMOGLOBIN 10.7 g/dl (13.5-17.5); MEAN CORPUSCULAR HEMOGLOBIN 33.8 pg (27.0-33.0); MEAN CORPUSCULAR HGB CONC 32.4 g/dl (32.0-36.5); MEAN CORPUSCULAR VOLUME 104.1 fl (80.0-96.0); PLATELET COUNT, AUTOMATED 235 10^3/uL (150-450); RED BLOOD COUNT 3.17 10^6/uL (4.30-6.10)
[2019-05-09 06:36] LABS: INR 2.21; PROTHROMBIN TIME 24.3 SECONDS (11.8-14.0)
[2019-05-09 06:45] LABS: BLOOD UREA NITROGEN 22 MG/DL (7-18); CALCIUM LEVEL 8.5 MG/DL (8.8-10.2); CARBON DIOXIDE LEVEL 31 MEQ/L (21-32); CHLORIDE LEVEL 98 MEQ/L (98-107); CREATININE FOR GFR 1.12 MG/DL (0.70-1.30); GLOMERULAR FILTRATION RATE > 60.0 (>35); GLUCOSE, FASTING 80 MG/DL (70-100); POTASSIUM SERUM 3.7 MEQ/L (3.5-5.1); SODIUM LEVEL 135 MEQ/L (136-145)
[2019-05-09] MEDS: SPIRONOLACTONE 25 MG TAB PO SCH (08:39)
[2019-05-09] MEDS: TORSEMIDE 100 MG TAB PO SCH (08:39)
[2019-05-09] MEDS: allopurinoL 100 MG TAB PO SCH (08:39)
[2019-05-09] MEDS: CEPHALEXIN 500 MG CAP PO SCH ×2 (08:40→19:59)
[2019-05-09] MEDS: VITAMIN D 1,000 INTERNATIONAL UNITS TABLET PO SCH (08:40)
[2019-05-09] MEDS: METOPROLOL SUCC (TopROL XL) 50MG **XL** TAB PO SCH (08:40)
[2019-05-09] MEDS: LOSARTAN 25 MG TAB PO SCH (08:40)
[2019-05-09] MEDS: TRIAMCINOLONE ACET 0.1% OINTMENT 15 GM TOP SCH ×2 (08:41→19:59)
[2019-05-09] MEDS: CLOTRIMAZOLE 1% TOPICAL CREAM 30GM TOP SCH ×2 (08:41→19:59)
--- NOTE | 2019-05-09 11:17 | DSES ---
DATE OF ADMISSION: 05/04/2019 DATE OF TRANSITION/ALC STATUS: 05/08/2019 DATE OF DISCHARGE: ATTENDING PHYSICIAN: Dr. Jus Cole PRIMARY CARE PHYSICIAN: Andreina Hill HISTORY OF PRESENT ILLNESS: This is an 83-year-old gentleman who presented to [facility] Emergency Department (ED) for complaints of increased frequency of mechanical falls. Workup in the ED proved negative for any significant abnormalities. The patient was subsequently admitted for impaired activities of daily living and inability to ambulate. HOSPITAL COURSE: The patient was noted to have a significant rash to proximal thighs and anterior abdomen. He was placed on a cephalosporin twice a day along with Lotrisone with significant improvement. The patient has been participating with physical therapy for his mobility. He has been deemed not yet safe for discharge to home to live independently. PHYSICAL EXAMINATION: On physical exam today, the patient denies any complaints. He denies chest pain, headache, blurred vision, dizziness or shortness of breath. He states he just simply has difficulty caring for himself at home. HEENT: Neck is supple, without lymphadenopathy or jugular venous distention (JVD). Cardiovascular: Heart rate and rhythm are regular. Pulmonary: Lungs are clear. Abdomen: Soft. Nontender. Bilateral lower extremities are without any edema. Neurologic: The patient is alert and oriented times three. Psych: Affect is appropriate. Conversation is congruent. ASSESSMENT: 1. Physical debility. 2. Bullous impetigo with tinea to the perineal region. 3. Frequent falls. 4. History of gouty arthropathy with tophi. 5. History of chronic systolic congestive heart failure. 6. History of coronary artery disease. 7. History of atrial fibrillation. PLAN: The patient will be maintained on senior living facility (SNF) status. Continue to participate with physical therapy. Patient and family services has been notified to look into options as far as (dictation cut off). We will continue with physical therapy/occupational therapy while he is with our facility. MEDICATIONS, DIET AND FURTHER DISCHARGE INSTRUCTIONS: Will be dictated at time of discharge.
[2019-05-09 14:00] VITALS: BP 117/58
[2019-05-09] MEDS: PRAVASTATIN 20 MG TAB PO SCH (17:23)
[2019-05-09] MEDS: MONTELUKAST 10 MG TAB PO SCH (17:23)
[2019-05-09] MEDS: WARFARIN SOD 1 MG TAB PO SCH (17:24)
[2019-05-09] MEDS: WARFARIN SOD 5 MG TAB PO SCH (17:24)
[2019-05-09 22:00] VITALS: BP 115/57
[2019-05-10 05:37] LABS: HEMATOCRIT 32.3 % (42.0-52.0); HEMOGLOBIN 10.8 g/dl (13.5-17.5); MEAN CORPUSCULAR HEMOGLOBIN 34.5 pg (27.0-33.0); MEAN CORPUSCULAR HGB CONC 33.4 g/dl (32.0-36.5); MEAN CORPUSCULAR VOLUME 103.2 fl (80.0-96.0); PLATELET COUNT, AUTOMATED 234 10^3/uL (150-450); RED BLOOD COUNT 3.13 10^6/uL (4.30-6.10); WHITE BLOOD COUNT 5.1 10^3/uL (4.0-10.0)
[2019-05-10 05:48] LABS: INR 2.44; PROTHROMBIN TIME 26.4 SECONDS (11.8-14.0)
[2019-05-10 06:00] VITALS: BP 114/76
[2019-05-10 06:01] LABS: CALCIUM LEVEL 8.5 MG/DL (8.8-10.2); CREATININE FOR GFR 1.29 MG/DL (0.70-1.30); GLOMERULAR FILTRATION RATE 56.4 (>35); POTASSIUM SERUM 3.7 MEQ/L (3.5-5.1)
[2019-05-10] MEDS: TORSEMIDE 100 MG TAB PO SCH (09:13)
[2019-05-10] MEDS: VITAMIN D 1,000 INTERNATIONAL UNITS TABLET PO SCH (09:13)
[2019-05-10] MEDS: SPIRONOLACTONE 25 MG TAB PO SCH (09:13)
[2019-05-10] MEDS: METOPROLOL SUCC (TopROL XL) 50MG **XL** TAB PO SCH (09:13)
[2019-05-10] MEDS: CEPHALEXIN 500 MG CAP PO SCH (09:13)
[2019-05-10] MEDS: CLOTRIMAZOLE 1% TOPICAL CREAM 30GM TOP SCH ×2 (09:14→20:04)
[2019-05-10] MEDS: TRIAMCINOLONE ACET 0.1% OINTMENT 15 GM TOP SCH ×2 (09:14→20:04)
[2019-05-10] MEDS: allopurinoL 100 MG TAB PO SCH (09:14)
[2019-05-10] MEDS: LOSARTAN 25 MG TAB PO SCH (09:14)
[2019-05-10 11:01] LABS: INR 2.5; PROTHROMBIN TIME 26.8 SECONDS (11.8-14.0)
[2019-05-10] MEDS: MONTELUKAST 10 MG TAB PO SCH (17:25)
[2019-05-10] MEDS: PRAVASTATIN 20 MG TAB PO SCH (17:25)
[2019-05-10] MEDS: WARFARIN SOD 1 MG TAB PO SCH (17:25)
[2019-05-10] MEDS: WARFARIN SOD 5 MG TAB PO SCH (17:26)
[2019-05-10] MEDS: risperiDONE 0.5 MG TAB PO SCH (20:04)
[2019-05-11 06:00] VITALS: BP 118/75
[2019-05-11 06:18] LABS: HEMOGLOBIN 11.1 g/dl (13.5-17.5); MEAN CORPUSCULAR HEMOGLOBIN 34.4 pg (27.0-33.0); MEAN CORPUSCULAR HGB CONC 33.6 g/dl (32.0-36.5); MEAN CORPUSCULAR VOLUME 102.2 fl (80.0-96.0); PLATELET COUNT, AUTOMATED 254 10^3/uL (150-450); RED BLOOD COUNT 3.23 10^6/uL (4.30-6.10); WHITE BLOOD COUNT 5.9 10^3/uL (4.0-10.0)
[2019-05-11 06:38] LABS: INR 2.45; PROTHROMBIN TIME 26.4 SECONDS (11.8-14.0)
[2019-05-11 06:41] LABS: CALCIUM LEVEL 8.7 MG/DL (8.8-10.2); CREATININE FOR GFR 1.24 MG/DL (0.70-1.30); POTASSIUM SERUM 3.8 MEQ/L (3.5-5.1)
[2019-05-11] MEDS: VITAMIN D 1,000 INTERNATIONAL UNITS TABLET PO SCH (08:33)
[2019-05-11] MEDS: LOSARTAN 25 MG TAB PO SCH (08:34)
[2019-05-11] MEDS: allopurinoL 100 MG TAB PO SCH (08:34)
[2019-05-11] MEDS: TORSEMIDE 100 MG TAB PO SCH (08:34)
[2019-05-11] MEDS: CLOTRIMAZOLE 1% TOPICAL CREAM 30GM TOP SCH ×2 (08:34→20:16)
[2019-05-11] MEDS: SPIRONOLACTONE 25 MG TAB PO SCH (08:34)
[2019-05-11] MEDS: TRIAMCINOLONE ACET 0.1% OINTMENT 15 GM TOP SCH ×2 (08:34→20:17)
[2019-05-11] MEDS: METOPROLOL SUCC (TopROL XL) 50MG **XL** TAB PO SCH (08:35)
[2019-05-11] MEDS: MONTELUKAST 10 MG TAB PO SCH (18:06)
[2019-05-11] MEDS: WARFARIN SOD 5 MG TAB PO SCH (18:06)
[2019-05-11] MEDS: WARFARIN SOD 1 MG TAB PO SCH (18:06)
[2019-05-11] MEDS: PRAVASTATIN 20 MG TAB PO SCH (18:06)
[2019-05-11] MEDS: risperiDONE 0.5 MG TAB PO SCH (20:15)
[2019-05-12 06:00] VITALS: BP 123/71
[2019-05-12 06:27] LABS: HEMATOCRIT 31.4 % (42.0-52.0); HEMOGLOBIN 10.4 g/dl (13.5-17.5); MEAN CORPUSCULAR HEMOGLOBIN 33.9 pg (27.0-33.0); MEAN CORPUSCULAR HGB CONC 33.1 g/dl (32.0-36.5); MEAN CORPUSCULAR VOLUME 102.3 fl (80.0-96.0); PLATELET COUNT, AUTOMATED 254 10^3/uL (150-450); RED BLOOD COUNT 3.07 10^6/uL (4.30-6.10); WHITE BLOOD COUNT 5.3 10^3/uL (4.0-10.0)
[2019-05-12 06:37] LABS: BLOOD UREA NITROGEN 24 MG/DL (7-18); CALCIUM LEVEL 8.6 MG/DL (8.8-10.2); CARBON DIOXIDE LEVEL 30 MEQ/L (21-32); CHLORIDE LEVEL 101 MEQ/L (98-107); CREATININE FOR GFR 1.12 MG/DL (0.70-1.30); GLOMERULAR FILTRATION RATE > 60.0 (>35); GLUCOSE, FASTING 90 MG/DL (70-100); POTASSIUM SERUM 3.6 MEQ/L (3.5-5.1); SODIUM LEVEL 136 MEQ/L (136-145)
[2019-05-12 06:44] LABS: INR 2.48; PROTHROMBIN TIME 26.7 SECONDS (11.8-14.0)
[2019-05-12] MEDS: SPIRONOLACTONE 25 MG TAB PO SCH (08:54)
[2019-05-12] MEDS: allopurinoL 100 MG TAB PO SCH (08:56)
[2019-05-12] MEDS: METOPROLOL SUCC (TopROL XL) 50MG **XL** TAB PO SCH (08:56)
[2019-05-12] MEDS: VITAMIN D 1,000 INTERNATIONAL UNITS TABLET PO SCH (08:56)
[2019-05-12] MEDS: LOSARTAN 25 MG TAB PO SCH (08:56)
[2019-05-12] MEDS: TORSEMIDE 100 MG TAB PO SCH (08:56)
[2019-05-12] MEDS: CLOTRIMAZOLE 1% TOPICAL CREAM 30GM TOP SCH ×2 (08:57→21:11)
[2019-05-12] MEDS: TRIAMCINOLONE ACET 0.1% OINTMENT 15 GM TOP SCH ×2 (09:00→21:11)
[2019-05-12] MEDS: MONTELUKAST 10 MG TAB PO SCH (17:53)
[2019-05-12] MEDS: PRAVASTATIN 20 MG TAB PO SCH (17:53)
[2019-05-12] MEDS: WARFARIN SOD 5 MG TAB PO SCH (17:54)
[2019-05-12] MEDS: WARFARIN SOD 1 MG TAB PO SCH (17:54)
[2019-05-12] MEDS: risperiDONE 0.5 MG TAB PO SCH (21:11)
[2019-05-13 05:58] LABS: HEMATOCRIT 33.2 % (42.0-52.0); HEMOGLOBIN 10.7 g/dl (13.5-17.5); MEAN CORPUSCULAR HEMOGLOBIN 33.3 pg (27.0-33.0); MEAN CORPUSCULAR HGB CONC 32.2 g/dl (32.0-36.5); MEAN CORPUSCULAR VOLUME 103.4 fl (80.0-96.0); PLATELET COUNT, AUTOMATED 253 10^3/uL (150-450); RED BLOOD COUNT 3.21 10^6/uL (4.30-6.10); WHITE BLOOD COUNT 4.6 10^3/uL (4.0-10.0)
[2019-05-13 06:00] VITALS: BP 127/71
[2019-05-13 06:10] LABS: INR 2.42; PROTHROMBIN TIME 26.1 SECONDS (11.8-14.0)
[2019-05-13 06:20] LABS: BLOOD UREA NITROGEN 28 MG/DL (7-18); CALCIUM LEVEL 8.3 MG/DL (8.8-10.2); CARBON DIOXIDE LEVEL 30 MEQ/L (21-32); CHLORIDE LEVEL 101 MEQ/L (98-107); GLOMERULAR FILTRATION RATE > 60.0 (>35); GLUCOSE, FASTING 81 MG/DL (70-100); POTASSIUM SERUM 3.8 MEQ/L (3.5-5.1); SODIUM LEVEL 136 MEQ/L (136-145)
[2019-05-13] MEDS: SPIRONOLACTONE 25 MG TAB PO SCH (08:07)
[2019-05-13] MEDS: METOPROLOL SUCC (TopROL XL) 50MG **XL** TAB PO SCH (08:07)
[2019-05-13] MEDS: VITAMIN D 1,000 INTERNATIONAL UNITS TABLET PO SCH (08:07)
[2019-05-13] MEDS: LOSARTAN 25 MG TAB PO SCH (08:08)
[2019-05-13] MEDS: allopurinoL 100 MG TAB PO SCH (08:08)
[2019-05-13] MEDS: TORSEMIDE 100 MG TAB PO SCH (08:08)
[2019-05-13] MEDS: TRIAMCINOLONE ACET 0.1% OINTMENT 15 GM TOP SCH ×2 (08:08→20:05)
[2019-05-13] MEDS: CLOTRIMAZOLE 1% TOPICAL CREAM 30GM TOP SCH ×2 (08:09→20:05)
[2019-05-13] MEDS: MONTELUKAST 10 MG TAB PO SCH (17:24)
[2019-05-13] MEDS: WARFARIN SOD 5 MG TAB PO SCH (17:24)
[2019-05-13] MEDS: PRAVASTATIN 20 MG TAB PO SCH (17:24)
[2019-05-13] MEDS: WARFARIN SOD 1 MG TAB PO SCH (17:24)
[2019-05-13] MEDS: risperiDONE 0.5 MG TAB PO SCH (20:26)
[2019-05-14 05:46] LABS: HEMATOCRIT 33.1 % (42.0-52.0); HEMOGLOBIN 10.9 g/dl (13.5-17.5); MEAN CORPUSCULAR HEMOGLOBIN 33.9 pg (27.0-33.0); MEAN CORPUSCULAR HGB CONC 32.9 g/dl (32.0-36.5); MEAN CORPUSCULAR VOLUME 102.8 fl (80.0-96.0); PLATELET COUNT, AUTOMATED 241 10^3/uL (150-450); RED BLOOD COUNT 3.22 10^6/uL (4.30-6.10); WHITE BLOOD COUNT 4.3 10^3/uL (4.0-10.0)
[2019-05-14 05:57] LABS: INR 2.12; PROTHROMBIN TIME 23.6 SECONDS (11.8-14.0)
[2019-05-14 06:00] VITALS: BP 129/67
[2019-05-14 06:10] LABS: BLOOD UREA NITROGEN 27 MG/DL (7-18); CALCIUM LEVEL 8.3 MG/DL (8.8-10.2); CARBON DIOXIDE LEVEL 29 MEQ/L (21-32); CHLORIDE LEVEL 101 MEQ/L (98-107); CREATININE FOR GFR 1.09 MG/DL (0.70-1.30); GLOMERULAR FILTRATION RATE > 60.0 (>35); GLUCOSE, FASTING 83 MG/DL (70-100); POTASSIUM SERUM 3.7 MEQ/L (3.5-5.1); SODIUM LEVEL 136 MEQ/L (136-145)
[2019-05-14] MEDS: allopurinoL 100 MG TAB PO SCH (08:42)
[2019-05-14] MEDS: TORSEMIDE 100 MG TAB PO SCH (08:42)
[2019-05-14] MEDS: SPIRONOLACTONE 25 MG TAB PO SCH (08:42)
[2019-05-14] MEDS: VITAMIN D 1,000 INTERNATIONAL UNITS TABLET PO SCH (08:42)
[2019-05-14] MEDS: METOPROLOL SUCC (TopROL XL) 50MG **XL** TAB PO SCH (08:47)
[2019-05-14] MEDS: LOSARTAN 25 MG TAB PO SCH (08:47)
[2019-05-14] MEDS: TRIAMCINOLONE ACET 0.1% OINTMENT 15 GM TOP SCH ×2 (08:47→21:34)
[2019-05-14] MEDS: CLOTRIMAZOLE 1% TOPICAL CREAM 30GM TOP SCH ×2 (08:48→21:34)
[2019-05-14] MEDS: MONTELUKAST 10 MG TAB PO SCH (17:10)
[2019-05-14] MEDS: PRAVASTATIN 20 MG TAB PO SCH (17:10)
[2019-05-14] MEDS: WARFARIN SOD 1 MG TAB PO SCH (17:11)
[2019-05-14] MEDS: WARFARIN SOD 5 MG TAB PO SCH (17:11)
[2019-05-14] MEDS: risperiDONE 0.5 MG TAB PO SCH (21:33)
[2019-05-15 06:00] VITALS: BP 128/74
[2019-05-15] MEDS: VITAMIN D 1,000 INTERNATIONAL UNITS TABLET PO SCH (08:34)
[2019-05-15] MEDS: LOSARTAN 25 MG TAB PO SCH (08:34)
[2019-05-15] MEDS: METOPROLOL SUCC (TopROL XL) 50MG **XL** TAB PO SCH (08:35)
[2019-05-15] MEDS: allopurinoL 100 MG TAB PO SCH (08:35)
[2019-05-15] MEDS: TORSEMIDE 100 MG TAB PO SCH (08:35)
[2019-05-15] MEDS: SPIRONOLACTONE 25 MG TAB PO SCH (08:35)
[2019-05-15] MEDS: TRIAMCINOLONE ACET 0.1% OINTMENT 15 GM TOP SCH ×2 (08:36→19:56)
[2019-05-15] MEDS: CLOTRIMAZOLE 1% TOPICAL CREAM 30GM TOP SCH ×2 (08:36→19:56)
[2019-05-15] MEDS: WARFARIN SOD 5 MG TAB PO SCH (17:31)
[2019-05-15] MEDS: PRAVASTATIN 20 MG TAB PO SCH (17:31)
[2019-05-15] MEDS: WARFARIN SOD 1 MG TAB PO SCH (17:31)
[2019-05-15] MEDS: MONTELUKAST 10 MG TAB PO SCH (17:31)
[2019-05-15] MEDS: risperiDONE 0.5 MG TAB PO SCH (19:57)
[2019-05-16 06:00] VITALS: BP 124/58
[2019-05-16] MEDS: TRIAMCINOLONE ACET 0.1% OINTMENT 15 GM TOP SCH ×2 (08:53→20:13)
[2019-05-16] MEDS: CLOTRIMAZOLE 1% TOPICAL CREAM 30GM TOP SCH ×2 (08:53→20:14)
[2019-05-16] MEDS: SPIRONOLACTONE 25 MG TAB PO SCH (08:54)
[2019-05-16] MEDS: LOSARTAN 25 MG TAB PO SCH (08:54)
[2019-05-16] MEDS: METOPROLOL SUCC (TopROL XL) 50MG **XL** TAB PO SCH (08:54)
[2019-05-16] MEDS: allopurinoL 100 MG TAB PO SCH (08:54)
[2019-05-16] MEDS: TORSEMIDE 100 MG TAB PO SCH (08:54)
[2019-05-16] MEDS: VITAMIN D 1,000 INTERNATIONAL UNITS TABLET PO SCH (08:54)
[2019-05-16] MEDS: WARFARIN SOD 1 MG TAB PO SCH (17:17)
[2019-05-16] MEDS: WARFARIN SOD 5 MG TAB PO SCH (17:17)
[2019-05-16] MEDS: MONTELUKAST 10 MG TAB PO SCH (17:17)
[2019-05-16] MEDS: PRAVASTATIN 20 MG TAB PO SCH (17:18)
[2019-05-16] MEDS: risperiDONE 0.5 MG TAB PO SCH (20:13)
[2019-05-17 06:00] VITALS: BP 130/73
[2019-05-17] MEDS: SPIRONOLACTONE 25 MG TAB PO SCH (08:43)
[2019-05-17] MEDS: METOPROLOL SUCC (TopROL XL) 50MG **XL** TAB PO SCH (08:43)
[2019-05-17 08:44] VITALS: BP 127/50
[2019-05-17] MEDS: VITAMIN D 1,000 INTERNATIONAL UNITS TABLET PO SCH (08:44)
[2019-05-17] MEDS: TRIAMCINOLONE ACET 0.1% OINTMENT 15 GM TOP SCH (08:44)
[2019-05-17] MEDS: allopurinoL 100 MG TAB PO SCH (08:44)
[2019-05-17] MEDS: TORSEMIDE 100 MG TAB PO SCH (08:44)
[2019-05-17] MEDS: LOSARTAN 25 MG TAB PO SCH (08:44)
[2019-05-17] MEDS: CLOTRIMAZOLE 1% TOPICAL CREAM 30GM TOP SCH (08:45)
[2019-05-17 10:11] LABS: INR 1.82; PROTHROMBIN TIME 20.8 SECONDS (11.8-14.0)
[2019-05-17] MEDS ORDERED: TRIA1OI TOP (11:51)
[2019-05-17] MEDS ORDERED: RISP0.5T21 PO (11:51)
== END 2019-05-17 14:10 ==
LOC: M ED 23:25 → M ED INP 23:26 → M PCU 05-05 03:32 → M MSPAV 05-06 11:49
PROVIDERS: ADMIT Internal Medicine; ATTEND Family Medicine
DX: R54 Age-related physical debility (principal); L01.03 Bullous impetigo; B35.8 Other dermatophytoses; R29.6 Repeated falls; M1A.9XX1 Chronic gout, unspecified, with tophus (tophi); I50.22 Chronic systolic (congestive) heart failure; I25.10 Atherosclerotic heart disease of native coronary artery without angina pectoris; I48.91 Unspecified atrial fibrillation; I11.9 Hypertensive heart disease without heart failure; I73.9 Peripheral vascular disease, unspecified; I34.1 Nonrheumatic mitral (valve) prolapse; Z79.01 Long term (current) use of anticoagulants; Z95.1 Presence of aortocoronary bypass graft; Z95.0 Presence of cardiac pacemaker; Z79.899 Other long term (current) drug therapy; Z87.891 Personal history of nicotine dependence
CPT/HCPCS: 36415; 70450; 73630; 80048; 80053; 83735; 85025; 85027; 85610; 85730; 86617; 93005; 97110; 97116; 97161; 97530; 97535; 99285; G0378

== ENCOUNTER → 2019-06-26 | Outpatient (REF) | payer MEDICAID, MEDICARE | LOC: M LAB REF 09:33 | PROVIDERS: ATTEND Surgery | DX: L97.514 Non-pressure chronic ulcer of other part of right foot with necrosis of bone (principal) | CPT/HCPCS: 11043; 11044; 88304; 88311; G0463 ==

== ENCOUNTER 2019-10-26 19:49 | Inpatient (IN) | payer MEDICARE, MEDICAID ==
[~2019-10-26] VITALS: Ht 185.4 cm; Wt 83.2 kg
[~2019-10-26 19:49] MED LIST changes: -MONT10TA2 PO; +MONT10TA4 PO
[2019-10-26] MEDS ORDERED: NITR0.4D6 TD (20:33)
[2019-10-26] MEDS ORDERED: APAP325T4 PO (20:33)
[2019-10-26] MEDS ORDERED: LEVO50TA5 PO (20:33)
[2019-10-26] MEDS ORDERED: DULC10SU2 PR (20:33)
[2019-10-26] MEDS ORDERED: MILKSUS5 PO (20:33)
[2019-10-26] MEDS ORDERED: FURO40TA2 PO (20:33)
[2019-10-26] MEDS ORDERED: CLIN150C14 PO (20:33)
[2019-10-26] MEDS ORDERED: FLEEENE12 PR (20:33)
[2019-10-26] MEDS ORDERED: NITR0.4S14 PO (20:33)
[2019-10-26 21:09] LABS: BASO % 0.2 % (0.0-1.0); EOS # 0.2 10^3/uL (0.0-0.5); EOS % 4.4 % (0.0-3.0); HEMATOCRIT 30.1 % (42.0-52.0); HEMOGLOBIN 9.8 g/dl (13.5-17.5); LYMPH # 1.2 10^3/uL (1.5-5.0); LYMPH % 24.8 % (24.0-44.0); MEAN CORPUSCULAR HEMOGLOBIN 33.1 pg (27.0-33.0); MEAN CORPUSCULAR HGB CONC 32.6 g/dl (32.0-36.5); MEAN CORPUSCULAR VOLUME 101.7 fl (80.0-96.0); MONO # 0.9 10^3/uL (0.0-0.8); MONO % 17.8 % (0.0-5.0); NEUTROPHILS # 2.6 10^3/uL (1.5-8.5); NEUTROPHILS % 52.4 % (36.0-66.0); PLATELET COUNT, AUTOMATED 206 10^3/uL (150-450); RED BLOOD COUNT 2.96 10^6/uL (4.30-6.10)
[2019-10-26 21:19] LABS: INR 2.31; PROTHROMBIN TIME 25.2 SECONDS (11.8-14.0)
[2019-10-26 21:20] LABS: PARTIAL THROMBOPLASTIN TIME 46.8 SECONDS (25.0-38.4)
[2019-10-26 21:45] LABS: ALBUMIN 3.2 GM/DL (3.2-5.2); BILIRUBIN,DIRECT 0.1 MG/DL (0.0-0.2); BILIRUBIN,TOTAL 0.2 MG/DL (0.2-1.0); C REACTIVE PROTEIN QUANTITATIV 1.48 MG/DL (0.00-0.30); CREATININE FOR GFR 1.35 MG/DL (0.70-1.30); GLOMERULAR FILTRATION RATE 53.3 (>35); MB/CK RELATIVE INDEX 4.55 (< OR =4); TROPONIN I 0.26 NG/ML (< 0.10)
[2019-10-26 21:45] LABS: ERYTHROCYTE SEDIMENTATION RATE 54 mm/hr (0-20)
[2019-10-26] MEDS ORDERED: NS 500 ML IV ONE (22:00)
--- NOTE | 2019-10-26 22:23 | ECGEPIP ---
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
[2019-10-26 23:56] LABS: CK-MB VALUE MASS 2.2 NG/ML (<3.6); MB/CK RELATIVE INDEX 3.44 (< OR =4); TROPONIN I 0.28 NG/ML (< 0.10)
[2019-10-27] MEDS ORDERED: ACETAMINOPHEN TAB 650MG DOSE (2X325MG) PO PRN (00:45)
[2019-10-27] MEDS ORDERED: TRIA1CR80 TOP (01:26)
[2019-10-27] MEDS ORDERED: RISP0.5T3 PO (01:26)
[2019-10-27] MEDS ORDERED: WARF-60 PO (01:26)
[2019-10-27] MEDS ORDERED: VITAD1000T PO (01:26)
[2019-10-27] MEDS ORDERED: ZYLO300T6 PO (01:26)
[2019-10-27] MEDS ORDERED: FURO20TA2 PO (01:26)
[2019-10-27] MEDS ORDERED: BISACODYL 10 MG SUPP PR PRN (01:45)
[2019-10-27] MEDS ORDERED: FLEET ENEMA PR PRN (01:45)
[2019-10-27] MEDS ORDERED: MOM 30ML SUSPENSION UDC PO PRN (01:45)
[2019-10-27] MEDS ORDERED: NITROGLYCERIN 0.4 MG SUBL TABLET SL PRN (01:45)
[2019-10-27] MEDS ORDERED: NS 1,000 ML IV SCH (02:15)
[2019-10-27 02:45] VITALS: BP 136/64
--- NOTE | 2019-10-27 03:00 | HPEPDOC ---
[facility] Medical History & Physical Date of Admission October 27, 2019 Date of Service: October 27, 2019 Primary Care Physician: FREDERIC BOB PA-C Attending Physician: OMRENO LANGE MD History and Physical CHIEF COMPLAINT: Right great toe redness and swelling HISTORY OF PRESENT ILLNESS: Jose is an 84-year-old male who resides at [facility] with PMHx of CAD s/p CABG, cardiomyopathy s/p bi-vent pacemaker, a-fib on coumadin, chronic LE edema, gouty tophi rt great toe, htn, pvd, mitral valve prolapse and severe insufficiency s/p valve replacement, hypothyroidism, hld, bph, and over active bladder, who presented to the ED for evaluation of his right great toe and foot. Per the ED, patient's shelter caretakers felt his right great toe looked worse as compared to baseline and initiated a presentation to [facility]. In route, [facility] ([facility]) made decision to bypass their ED and instead have him come to [facility] for an MRI of the foot. Patient has a pacemaker in place in his left upper chest and as a result, MRI of the right foot was deferred. Patient himself does not feel his right foot and great toe appear to be any worse than his baseline and he has no associated complaints no pain, paresthesias, or discomfort of any kind. [facility] ED contacted Dr. Brown of wound care, whom patient follows with regularly. Findings from a CT scan of the right foot taken at [facility] on 10/[address] Aakash pacheco who felt they were indicative of pt's baseline after debridement and was not concerned for possible osteomyelitis. Workup in the ED revealed initial elevated troponin of 0.26, with subsequent f/u of 0.28. Repeat EKGs were stable with a ventricular paced-rhythm. sCr was elevated at 1.35 (bl about 1-1.1), cbc showed macrocytic anemia, ESR 54, CRP 1.48, and therapeutic INR on coumadin of 2.31. Patient received a 500cc fluid bolus in ED, and was started on prednisone for the acute gout. He was also incontinent of urine and a condom catheter was placed. Upon time of admission, patient denied any chest pain, chest pressure, palpitations, shortness of breath, or pain of bilateral lower extremities. He was subsequently admitted under the care of the hospitalist service for f/u monitoring of troponin levels, acute kidney injury, and acute gout of right great toe. Patient is DNR/DNI, this was confirmed when ED spoke to patient's son (also pt's hcp) earlier in the overnight. 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 Lives at [facility]. Has 4 grown children (3 sons and 1 daughter). HCP is his son Butch (a local weapons officer naval activity). Former cigarette smoker, has been greater than 10 years since he last smoked. Denies current or former alcohol or illegal drug use. FAMILY HISTORY: Review of patient's family history via recent PCP documentation does not reveal any contributory history. ALLERGIES: Please see below. REVIEW OF SYSTEMS: CONSTITUTIONAL: Endorses mild chills. Denies recent illness, fever, night sweats. HEENT: Denies eye pain, visual disturbances, ear pain, rhinorrhea, sinus congestion, dysphagia, or odynophagia CARDIOVASCULAR: Denies chest pain, chest pressure or palpitations RESPIRATORY: Denies dyspnea, cough, pleuritic chest pain, or increased work of breathing GASTROINTESTINAL: Eyes, abdominal pain, nausea, vomiting, diarrhea GENITOURINARY: Denies dysuria or hematuria MUSCULOSKELETAL: Denies specific myalgias or arthralgias at this time NEUROLOGICAL: Endorses chronic intermittent b/l LE numbness. Denies headache, dizziness, lightheadedness, difficulty focusing/concentrating HOME MEDICATIONS: Please see below. PHYSICAL EXAMINATION: VITAL SIGNS: Temperature 96.7, pulse 82, respiratory rate 20, blood pressure 157/74, pulse oximetry 97% on room air. GENERAL APPEARANCE: Elderly man resting comfortably in bed. Appears stated age. No acute distress. Alert and oriented 3. HEENT: Normocephalic, atraumatic. Bilaterally constricted pupils that are equal, round, reactive to light and accommodation. Anicteric, noninjected sclera. Mild conjunctival pallor. Upper dentures in place. Moist mucous membranes. No cervica l lymphadenopathy appreciated. CARDIOVASCULAR: Regular rate with ventricular pacing. No rubs or gallops appreciated. Pacemaker in place in left upper chest. Vertical incisional scar over sternum. 2+ radial pulses bilaterally. Adequate capillary refill. LUNGS: Mild inspiratory crackles right lung base posteriorly, otherwise clear to auscultation with no significant rhonchi or wheezing. Subsatisfactory respiratory effort with mildly diminished tidal volume. Symmetric chest expansion. Speaking full sentences. Breathing room air. ABDOMEN: Soft, nontender with moderate distention predominantly in the left upper and lower quadrants., No guarding or rigidity.. Normoactive bowel sounds heard throughout. Some vertical scarring over the central abdomen. EXTREMITIES: Swelling, erythema, and warmth of right great toe with no induration or discharge. 2+ LLE and pedal pitting edema. 1+ RLE pitting edema with trace pedal pitting edema. Moderate warmth of RLE and foot vs left. B/l toenail onchomycosis and hammer toes. Enlarged joints of b/l hands consistent with OA. NEUROLOGICAL: Awake, alert and oriented to person, place and situation, but not time. No focal neurological deficits appreciated. Non-dysarthric speech. Decreased sensation to light touch on the medial aspect of of b/l LEs. PSYCHIATRIC: Mood and affect appear appropriate. LABORATORY DATA: Please see below. IMAGING: Portable 1 view chest x-ray, 10/26/19: Official radiology impression not yet documented. Cursory review shows pacemaker in place in left upper chest with sternotomy wires and cardiomegaly. Right foot, complete x-ray series, 10/26/19: Official radiology impression not yet documented. CT scan of the right foot with contrast at [facility], 10/25/19: Impression Bone fragment noted at the base of the distal phalanx of the first toe with erosive lucent areas present. The base of the distal phalanx of the first toe into a lesser degree, the distal aspect of the proximal phalanx. The fragment of bone could be from fracture, but given the findings, this is concerning for ostium myelitis at this portion of the forced toe. Bulky calcification seen around the first MTP joint and to a lesser degree around the fifth MTP joint and there are extensive calcifications around the tarsal bones/tarsometatarsal joints, likely from gout. Correlate clinically. There are some erosions noted at the first and fifth metatarsal heads as well as at the tarsal bones/tarsometatarsal joint regions. This may be from arthritis from the suspected gout. I cannot exclude osteomyelitis. Severe subcutaneous edema. Further evaluation may be made with MRI scan without and with contrast or possibly 3phase bone scan or a tagged white blood cell scan for ruling out infection. MICROBIOLOGY: Please see below. ASSESSMENT & PLAN: This is an 84-year-old man from [facility] with history of CAD s/p CABG, cardiomyopathy s/p biventricular pacemaker, atrial fibrillation on Coumadin, peripheral vascular disease, mitral valve prolapse and insufficiency s/p valve replacement, htn, hld, hypothyroidism, BPH, and overactive bladder, who was admitted primarily for troponin leak and secondarily for treatment of acute gout of the right great. #Elevated troponin -initial 0.26 with f/u 0.28 -per ED, pt had recent hospitalization at [facility] in Jul 2019 where there was also a trop leak -potentially 2/2 chronic htn and/or CHF/cardiomyopathy history -pt consistently denied any chest pain, chest pressure, or palpitations on exam -two EKGs were stable and unchanged, showing regular ventricular-paced rate -Trending troponins every 6 hours #Acute gout attack, right great toe -elevated inflammatory markers: ESR 54, CRP 1.48 -PO prednisone initiated for acute attack due to possible complication associated w/ NSAIDs in setting of JUSTO -home allopurinol continued -pt remained afebrile with WBC and lactic acid wnl -upon ED conversation with pt's wound care provider (Dr. Brown), recent CT impression of foot is typical of post-debridement state and concern for possible OM is low -Important upon d/c to coordinate wound care f/u as pt has missed last [address] Brown's office is to be called so as pt returns to schedule. #Acute kidney injury -sCr 1.35 (baseline about 1-1.1), BUN 62 -likely pre-renal from chronic edematous state -received 500cc bolus in ED -currently on maintenance IVF (NS) -avoid nephrotoxic agents -f/u metabolic panel #Atrial fibrillation, on Coumadin -initial therapeutic INR (2.31); EKG showed stable, ventricular pacing on multiple studies -continued on home warfarin -f/u INR #Macrocytic normochromic anemia, appears chronic -Hgb 9.8, MCV 101.7 -appears to have chronic macrocytic anemia upon record review -f/u with pcp as outpt to assess for adequate daily nutrition/nutritional deficiencies #History of BPH and overactive bladder -was incontinent of urine in ED -condom cathether subsequently placed #Hyponatremia, mild -likely 2/2 edema/cardiomyopathy and justo -sNa 133 (remains 133 on corrected calculation for sGlu 106) -sOsm value added to am labs -s/p one 500cc bolus, with 1L NS running now #CAD, s/p CABG -home bid nitroglycerin patch continued #HTN -home metoprolol succinate continued -2g Na diet #HLD -home pravastatin continued #Hypothyroidism -home levothyroxine continued #intermediate resident, [place], [place] -Rapid COVID-19 test in ED was negative #DVT prophylaxis: home coumadin continued Disposition: Med/surg admit; pending monitored troponin downtrend and outpt f/u w/ wound care (Dr. Brown) for right toe. Vital Signs Vital Signs Date Time Temp Pulse Resp B/P (MAP) Pulse Ox O2 Delivery O2 Flow Rate FiO2 10/27/19 02:16 77 20 98 Room Air 10/27/19 02:15 133/87 (102) 10/26/19 20:11 96.7 Laboratory Data Labs 24H Laboratory Tests 2 10/26/19 20:58: Prothrombin Time 25.2H, Prothromb Time International Ratio 2.31, Activated Partial Thromboplast Time 46.8H, Anion Gap 6L, Glomerular Filtration Rate 53.3, Calcium Level 8.0L, Total Bilirubin 0.2, Direct Bilirubin 0.1, Aspartate Amino Transf (AST/SGOT) 20, Alanine Aminotransferase (ALT/SGPT) 20, Alkaline Phosphatase 97, Total Creatine Kinase 66, Creatine Kinase MB 3.0, Creatine Kinase MB Relative Index 4.55H, Troponin I 0.26H, C-Reactive Protein, Quantitative 1.48H, Total Protein 7.0, Albumin 3.2, Albumin/Globulin Ratio 0.8, Lipase 319 10/26/19 20:59: Immature Granulocyte % (Auto) 0.4, Neutrophils (%) (Auto) 52.4, Lymphocytes (%) (Auto) 24.8, Monocytes (%) (Auto) 17.8H, Eosinophils (%) (Auto) 4.4H, Basophils (%) (Auto) 0.2, Neutrophils # (Auto) 2.6, Lymphocytes # (Auto) 1.2L, Monocytes # (Auto) 0.9H, Eosinophils # (Auto) 0.2, Basophils # (Auto) 0.0, Nucleated Red Blood Cells % (auto) 0.0, Erythrocyte Sedimentation Rate 54H, Lactic Acid Level 0.7 10/26/19 23:15: Total Creatine Kinase 64, Creatine Kinase MB 2.2, Creatine Kinase MB Relative Index 3.44, Troponin I 0.28H 10/27/19 01:13: Coronavirus (COVID-19)(PCR) NEGATIVE 10/27/19 02:21: CBC/BMP Laboratory Tests 10/26/19 20:58 10/26/19 20:59 Microbiology Microbiology 10/26/19 Blood Culture, Received Pending 10/26/19 Blood Culture, Received Pending Home Medications Scheduled Allopurinol (Zyloprim) 300 Mg Tablet, 300 MG PO DAILY Cholecalciferol (Vitamin D3) (Vitamin D3) 1,000 Unit Tablet, 1,000 UNITS PO DAILY Clindamycin Hcl (Clindamycin HCl) 150 Mg Capsule, 300 MG PO QID END ANTIBIOTIC ON 11/02/19 Furosemide (Furosemide) 20 Mg Tablet, 60 MG PO BID Levothyroxine Sodium (Levothyroxine Sodium) 50 Mcg Tablet, 50 MCG PO DAILY Metoprolol Succinate (Metoprolol Succinate) 50 Mg Tab.er.24h, 50 MG PO DAILY Mirabegron (Myrbetriq) 25 Mg Tab.er.24h, 25 MG PO DAILY Montelukast Sodium (Montelukast Sodium) 10 Mg Tablet, 10 MG PO QHS Nitroglycerin (Nitroglycerin Patch) 0.4 Mg/Hr Patch.td24, 0.4 MG TD DAILY Pravastatin Sodium (Pravastatin Sodium) 40 Mg Tablet, 40 MG PO QHS Risperidone (Risperidone) 0.5 Mg Tablet, 0.5 MG PO QHS Spironolactone (Spironolactone) 25 Mg Tablet, 25 MG PO DAILY Triamcinolone Acet (Triamcinolone Acetonide 0.1% Crm) 80 Gm Cream..g., 1 APLCT TOP BID APPLY THIN LAYER TO AFFCETED AREAS Ubidecarenone (Co Q-10) 100 Mg Capsule, 100 MG PO DAILY Warfarin Sodium (Warfarin Sodium) 6 Mg Tablet, 6 MG PO QHS Scheduled PRN Acetaminophen (Acetaminophen) 325 Mg Tablet, 325 MG PO Q6HP PRN for PAIN OR FEVER Bisacodyl (Dulcolax) 10 Mg Supp.rect, 10 MG [place] DAILY PRN for CONSTIPATION GIVE ONE DAY AFTER MILK OF MAG IF NO BM Magnesium Hydroxide (Milk of Magnesia) 400 Mg/5 Ml Oral.susp, 30 ML PO DAILY PRN for CONSTIPATION FOR NO BM IN 3 DAYS Nitroglycerin (Nitroglycerin) 0.4 Mg Tab.subl, 0.4 MG PO NITRO PRN for CHEST PAIN Sodium Phosphate,[place]-Dibasic (Fleet Enema) 133 Ml Enema, 1 PETE [place] DAILY PRN for CONSTIPATION IF SUPPOSITORY INEFFECTIVE Allergies Coded Allergies: No Known Allergies (Unverified , 05/04/19) GME ATTESTATION My faculty preceptor for this patient encounter was physically present during the encounter and was fully available. All aspects of the patient interview, examination, medical decision making process, and medical care plan development were reviewed and approved by the faculty preceptor. The faculty preceptor is a jameson and concurs with the plan as stated in the body of this note and will attest to such by his/her cosignature. ATTENDING NOTE I independently examined and we discussed the plan as described by the resident above. Briefly, 84yo M with CAD s/p CABG, Afib on Coumadin,PPM, gout, who follows with Dr. Brown for foot ulcers who was transferred from [facility] for c/f osteomyelitis per CT findings after presenting warm gouty left foot. On discussion of imaging with Dr. Brown, he described that CT findings are c/w post debridement findings as he debrided his foot and was biopsy negative for osteo at the time and is now admitted for trop leak without symptoms and JUSTO, as well as gout flare. A-FIB/CHADSVASC A-FIB History Current/History of A-Fib/PAF?: Yes Current PO Anticoag Therapy: Yes (home coumadin continued) KAREN FORRESTER D.O. October 27, 2019 02:59 MORENO LANGE MD October 27, 2019 06:38
[2019-10-27] MEDS: risperiDONE 0.5 MG TAB PO SCH ×2 (03:17→20:41)
[2019-10-27] MEDS: PRAVASTATIN 20 MG TAB PO SCH ×2 (03:17→20:41)
[2019-10-27] MEDS: LEVOTHYROXINE 50MCG TABLET (0.05MG) PO SCH (05:29)
--- NOTE | 2019-10-27 05:41 | ECGEPIP ---
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
[2019-10-27 06:00] VITALS: BP 133/64
[2019-10-27 07:27] LABS: INR 2.07; PROTHROMBIN TIME 23.1 SECONDS (11.8-14.0)
[2019-10-27] MEDS: CO-ENZYME Q10 50 MG CAP PO SCH (08:51)
[2019-10-27] MEDS: predniSONE 20 MG TAB PO SCH ×2 (08:51→20:41)
[2019-10-27] MEDS: NITROGLYCERIN 0.4 MG/HR PATCH TD SCH (08:52)
[2019-10-27] MEDS: allopurinoL 300 MG TAB PO SCH (08:52)
[2019-10-27] MEDS: METOPROLOL SUCC (TopROL XL) 50MG **XL** TAB PO SCH (08:52)
[2019-10-27] MEDS: VITAMIN D 1,000 INTERNATIONAL UNITS TABLET PO SCH (08:52)
[2019-10-27] MEDS: TRIAMCINOLONE ACET 0.1% CREAM 80 GM TOP SCH ×2 (08:53→20:42)
--- NOTE | 2019-10-27 09:57 | REP ---
RIGHT FOOT SERIES: FOUR VIEWS. HISTORY: Osteomyelitis/gout. Comparison right foot radiographs are from May 05, 2019. FINDINGS: There is diffuse osteopenia. Soft tissue swelling is seen most pronounced about the 5th and 1st metatarsophalangeal joints. There is also soft tissue swelling at the midfoot and at the IP joint of the great toe. In these areas, there are is faintly calcific soft tissue nodularity consistent with tophaceous deposits. There are erosive changes in the distal end of the 5th and distal end of the 1st metatarsals and at the base of the proximal phalanx of the great toe. These erosive changes are stable. At the IP joint of the great toe there are new erosive changes involving the distal end of the proximal phalanx and the proximal end of the distal phalanx. These could reflect acute erosive gouty change or osteomyelitis. There are surgical clips in the soft tissues of the distal calf and vascular calcification is observed. IMPRESSION: There are changes of tophaceous gout with erosive changes. There is diffuse soft tissue swelling. There are new erosive changes at the IP joint of the great toe compared with the May 05, 2019 study. These are nonspecific as above. Electronically Signed by Chris Bey MD 10/27/2019 11:24 A
--- NOTE | 2019-10-27 10:04 | REP ---
CHEST X-RAY: SITTING AP VIEW. HISTORY: Preop. No comparison chest x-ray. FINDINGS: A bipolar pacemaker is seen in the right heart via the left side. There is an epicardial lead as well associated with this power plant. Median sternotomy wires are noted. Monitoring electrodes are seen. There are surgical clips projecting in the right axilla and right chest wall. Moderate cardiomegaly is observed. There appears to be a valve replacement overlying the heart. The aorta is tortuous and calcific. Pulmonary vasculature is not increased. No infiltrate is seen. There is very slight blunting of the right lateral pleural angle. IMPRESSION: Moderate cardiomegaly status post valve replacement with pacemaker. Slight blunting right lateral pleural angle. Electronically Signed by Chris Bey MD 10/27/2019 11:25 A
--- NOTE | 2019-10-27 10:42 | IPNPDOC ---
Subjective Date Seen The patient was seen on 10/27/19. Subjective Chief Complaint/HPI Patient offers no complaint. As per patient, his right toe and always been like that and he states that " they just made a big fuss about it". General: Denies: ROS Unobtainable, Chills, Night Sweats, Fatigue, Malaise, Normal Appetite, Other Symptoms Constitutional: Denies: Chills, Fever, Malaise, Night Sweats, Weakness, Fatigue, Weight Loss, Lethargy, Other Skin: Denies: Rash, Lesions, Jaundice, Bruising, Itching, Dry, Breakdown, Nail Changes, Other Pulmonary: Denies: Dyspnea, Cough, Pleuritic Chest Pain, Other Symptoms Cardiovascular: Denies: Chest Pain, Palpitations, Orthopnea, Paroxysmal Noc. Dyspnea, Edema, Lt Headedness, Other Symptoms Endocrine: Denies: Polydipsia, Polyphagia, Polyuria, Heat Intolerance, Cold Intolerance, Other Endocrine Sx Musculoskeletal: Denies: Neck Pain, Back Pain, Shoulder Pain, Arm Pain, Hand Pain, Leg Pain, Foot Pain, Joint Pain, Muscle Pain, Spasms, Other Symptoms Neurological: Denies: Weakness, Numbness, Incoordination, Change in speech, Confusion, Seizures, Other Symptoms Objective Physical Examination General Exam: Positive: Alert, Cooperative Eye Exam: Positive: PERRLA ENT Exam: Positive: Atraumatic, Mucous membr. moist/pink Chest Exam: Positive: Clear to auscultation, Normal air movement Heart Exam: Positive: Rate Normal, Normal S1, Normal S2 Abdomen Exam: Positive: Normal bowel sounds, Soft Extremity Exam: Positive: Other (, gouty tophi right back to) Skin Exam: Positive: Nl turgor and temperature Neuro Exam: Positive: Strength at 5/5 X4 ext, Cranial Nerves 3-12 NL Assessment /Plan Problems (1) Gouty arthropathy, chronic, with tophi Status: Chronic Problem Text: On clinical examination, patient has a chronic gouty arthritis with office on right big toe, no acute changes noticed And as per Dr. Brown on the changes are chronic in nature and patient has missed 3 appointments to see him for follow-up , No further workup needed at this point, patient can follow with Dr. Brown as an outpatient (2) Elevated troponin Status: Acute Problem Text: Patient lost troponin 0.21 Mildly elevated troponins, most likely secondary to his demand ischemia, which he does have a chronic history of CAD pt is completely asymptomatic. We will continue his home meds and trend troponins. (3) Chronic systolic CHF (congestive heart failure) Status: Chronic Problem Text: History of chronic systolic hypertension Patient is well compensated at the present time Continue home meds (4) Acute renal failure Status: Acute Problem Text: AK and C KD stage III Today's repeat labs are still pending , Most likely prerenal Patient received IV fluids in ED Continue current IV fluids and gentle hydration and will follow up BMP in a.m. (5) Atrial fibrillation Status: Chronic Problem Text: Ventricular rate is under control Continue telemetry monitoring Continue home meds. Patient is therapeutic on anticoagulation with Coumadin (6) CAD (coronary artery disease) Status: Chronic Problem Text: Well compensated, patient is completely asymptomatic Continue home meds Plan/VTE VTE Prophylaxis Ordered?: Yes VS, I&O, 24H, Fishbone Vital Signs/I&O Vital Signs Date Time Temp Pulse Resp B/P (MAP) Pulse Ox O2 Delivery O2 Flow Rate FiO2 10/27/19 08:52 71 133/64 10/27/19 06:00 97.4 16 96 Room Air I&O- Last 24 Hours up to 6 AM 10/27/19 06:00 Intake Total 910 ml Output Total 350 ml Balance 560 ml Laboratory Data 24H LABS Laboratory Tests 2 10/26/19 20:58: Prothrombin Time 25.2H, Prothromb Time International Ratio 2.31, Activated Partial Thromboplast Time 46.8H, Anion Gap 6L, Glomerular Filtration Rate 53.3, Calcium Level 8.0L, Total Bilirubin 0.2, Direct Bilirubin 0.1, Aspartate Amino Transf (AST/SGOT) 20, Alanine Aminotransferase (ALT/SGPT) 20, Alkaline Phosphatase 97, Total Creatine Kinase 66, Creatine Kinase MB 3.0, Creatine Kinase MB Relative Index 4.55H, Troponin I 0.26H, C-Reactive Protein, Quantitative 1.48H, Total Protein 7.0, Albumin 3.2, Albumin/Globulin Ratio 0.8, Lipase 319 10/26/19 20:59: Immature Granulocyte % (Auto) 0.4, Neutrophils (%) (Auto) 52.4, Lymphocytes (%) (Auto) 24.8, Monocytes (%) (Auto) 17.8H, Eosinophils (%) (Auto) 4.4H, Basophils (%) (Auto) 0.2, Neutrophils # (Auto) 2.6, Lymphocytes # (Auto) 1.2L, Monocytes # (Auto) 0.9H, Eosinophils # (Auto) 0.2, Basophils # (Auto) 0.0, Nucleated Red Blood Cells % (auto) 0.0, Erythrocyte Sedimentation Rate 54H, Lactic Acid Level 0.7 10/26/19 23:15: Total Creatine Kinase 64, Creatine Kinase MB 2.2, Creatine Kinase MB Relative Index 3.44, Troponin I 0.28H 10/27/19 01:13: Coronavirus (COVID-19)(PCR) NEGATIVE 10/27/19 02:21: Troponin I 0.24H 10/27/19 07:00: Troponin I 0.21H, Prothrombin Time 23.1H, Prothromb Time International Ratio 2.07, Osmolality 293 CBC/BMP Laboratory Tests 10/26/19 20:58 10/26/19 20:59 Microbiology Microbiology 10/26/19 Blood Culture, Received Pending 10/26/19 Blood Culture, Received Pending MATEO WOOTEN MD October 27, 2019 10:42
[2019-10-27 11:52] LABS: HEMATOCRIT 27.5 % (42.0-52.0); HEMOGLOBIN 9.1 g/dl (13.5-17.5); MEAN CORPUSCULAR HEMOGLOBIN 33.3 pg (27.0-33.0); MEAN CORPUSCULAR HGB CONC 33.1 g/dl (32.0-36.5); MEAN CORPUSCULAR VOLUME 100.7 fl (80.0-96.0); PLATELET COUNT, AUTOMATED 183 10^3/uL (150-450); RED BLOOD COUNT 2.73 10^6/uL (4.30-6.10); WHITE BLOOD COUNT 5.5 10^3/uL (4.0-10.0)
[2019-10-27 12:21] LABS: BLOOD UREA NITROGEN 51 MG/DL (7-18); CALCIUM LEVEL 8.1 MG/DL (8.8-10.2); CARBON DIOXIDE LEVEL 27 MEQ/L (21-32); CHLORIDE LEVEL 102 MEQ/L (98-107); CREATININE FOR GFR 1.05 MG/DL (0.70-1.30); GLOMERULAR FILTRATION RATE > 60.0 (>35); GLUCOSE, FASTING 96 MG/DL (70-100); MAGNESIUM LEVEL 2.1 MG/DL (1.8-2.4); POTASSIUM SERUM 4.2 MEQ/L (3.5-5.1); SODIUM LEVEL 136 MEQ/L (136-145); TROPONIN I 0.16 NG/ML (< 0.10)
[2019-10-27 14:00] VITALS: BP 132/62
[2019-10-27] MEDS: WARFARIN SOD 3 MG TAB PO SCH (17:23)
[2019-10-27] MEDS ORDERED: LORazepam 2 MG/ML VIAL (J2060) As Ordered ONE (18:46)
[2019-10-27] MEDS: LORazepam 2 MG/ML VIAL (J2060) IV PRN (18:50)
[2019-10-27] MEDS: MONTELUKAST 10 MG TAB PO SCH (20:41)
[2019-10-27 22:00] VITALS: BP 128/62
[2019-10-28] MEDS: LORazepam 2 MG/ML VIAL (J2060) IV PRN (02:35)
[2019-10-28] MEDS: LEVOTHYROXINE 50MCG TABLET (0.05MG) PO SCH (05:34)
[2019-10-28 06:00] VITALS: BP 149/78
[2019-10-28 06:16] LABS: HEMOGLOBIN 10.2 g/dl (13.5-17.5); MEAN CORPUSCULAR HGB CONC 32.9 g/dl (32.0-36.5); MEAN CORPUSCULAR VOLUME 100.3 fl (80.0-96.0); PLATELET COUNT, AUTOMATED 221 10^3/uL (150-450); RED BLOOD COUNT 3.09 10^6/uL (4.30-6.10)
[2019-10-28 06:30] LABS: INR 1.53; PROTHROMBIN TIME 18.1 SECONDS (11.8-14.0)
[2019-10-28 06:45] LABS: BLOOD UREA NITROGEN 37 MG/DL (7-18); CALCIUM LEVEL 8.4 MG/DL (8.8-10.2); CARBON DIOXIDE LEVEL 24 MEQ/L (21-32); CHLORIDE LEVEL 101 MEQ/L (98-107); CREATININE FOR GFR 0.94 MG/DL (0.70-1.30); GLOMERULAR FILTRATION RATE > 60.0 (>35); GLUCOSE, FASTING 119 MG/DL (70-100); MAGNESIUM LEVEL 2.2 MG/DL (1.8-2.4); POTASSIUM SERUM 4.6 MEQ/L (3.5-5.1); SODIUM LEVEL 133 MEQ/L (136-145); TROPONIN I 0.11 NG/ML (< 0.10)
[2019-10-28] MEDS: predniSONE 20 MG TAB PO SCH ×2 (09:40→20:43)
[2019-10-28] MEDS: CO-ENZYME Q10 50 MG CAP PO SCH (09:40)
[2019-10-28] MEDS: VITAMIN D 1,000 INTERNATIONAL UNITS TABLET PO SCH (09:40)
[2019-10-28] MEDS: allopurinoL 300 MG TAB PO SCH (09:40)
[2019-10-28] MEDS: METOPROLOL SUCC (TopROL XL) 50MG **XL** TAB PO SCH (09:42)
[2019-10-28] MEDS: NITROGLYCERIN 0.4 MG/HR PATCH TD SCH (09:45)
[2019-10-28] MEDS: TRIAMCINOLONE ACET 0.1% CREAM 80 GM TOP SCH ×2 (09:45→20:43)
[2019-10-28] MEDS ORDERED: HALOPERIDOL 5MG/ML VIAL (J1630 PER 1) IM STA (09:46)
--- NOTE | 2019-10-28 11:19 | IPNPDOC ---
Subjective Date Seen The patient was seen on 10/28/19. Subjective Chief Complaint/HPI Patient is confused, trying to find some stuff in the bed, delirious, had not slept all night General: Reports: ROS Unobtainable (secondary to acute delirium) Objective Physical Examination General Exam: Positive: Other (confused, paranoid and delirious) Chest Exam: Positive: Clear to auscultation, Normal air movement Heart Exam: Positive: Rate Normal, Normal S1, Normal S2 Abdomen Exam: Positive: Normal bowel sounds, Soft Extremity Exam: Positive: Other (, gouty tophi right back to) Skin Exam: Positive: Nl turgor and temperature Assessment /Plan Problems (1) Delirium due to another medical condition, acute, hyperactive Status: Acute Problem Text: Patient's symptoms are consistent with acute hyperactive delirium secondary to most likely change of his familiar surroundings. Also, change in his interaction with the familiar faces and time. Haldol 5 mg IM 1 dose has been ordered Will also start Seroquel by mouth 12.5 mg twice a day till patient recovers from his delirium (2) Gouty arthropathy, chronic, with tophi Status: Chronic Problem Text: On clinical examination, patient has a chronic gouty arthritis with office on right big toe, no acute changes noticed And as per Dr. Brown on the changes are chronic in nature and patient has missed 3 appointments to see him for follow-up No further workup needed at this point, patient can follow with Dr. Brown as an outpatient Once patient is clinically stable and delirium has resolved. He'll be discharged back to his detention (3) Elevated troponin Status: Acute Problem Text: Patient's troponins have a slowly tailed off, his last troponin is 0.11 Mildly elevated troponins, most likely secondary to his demand ischemia, which he does have a chronic history of CAD, CHF pt is completely asymptomatic., No further intervention indicated at this time (4) Chronic systolic CHF (congestive heart failure) Status: Chronic Problem Text: History of chronic systolic hypertension Patient is well compensated at the present time Continue home meds (5) Acute renal failure Status: Acute Problem Text: AK and C KD stage III Today's repeat labs are still pending , Most likely prerenal Patient received IV fluids in ED Continue current IV fluids and gentle hydration and will follow up BMP in a.m. (6) Atrial fibrillation Status: Chronic Problem Text: Ventricular rate is under control Continue telemetry monitoring Continue home meds. Patient is therapeutic on anticoagulation with Coumadin (7) CAD (coronary artery disease) Status: Chronic Problem Text: Well compensated, patient is completely asymptomatic Continue home meds Plan/VTE VTE Prophylaxis Ordered?: Yes VS, I&O, 24H, Fishbone Vital Signs/I&O Vital Signs Date Time Temp Pulse Resp B/P (MAP) Pulse Ox O2 Delivery O2 Flow Rate FiO2 10/28/19 09:42 72 157/80 10/28/19 06:00 97.8 20 98 Room Air I&O- Last 24 Hours up to 6 AM 10/28/19 06:00 Intake Total 4135 ml Output Total 0 ml Balance 4135 ml Laboratory Data 24H LABS Laboratory Tests 2 10/27/19 11:32: Nucleated Red Blood Cells % (auto) 0.0, Anion Gap 7L, Glomerular Filtration Rate > 60.0, Calcium Level 8.1L, Magnesium Level 2.1, Troponin I 0.16#H 10/27/19 17:43: Troponin I 0.14H 10/27/19 23:28: Troponin I 0.12H 10/28/19 05:44: Nucleated Red Blood Cells % (auto) 0.0, Anion Gap 8, Glomerular Filtration Rate > 60.0, Calcium Level 8.4L, Magnesium Level 2.2, Troponin I 0.11H, Prothrombin Time 18.1H, Prothromb Time International Ratio 1.53 CBC/BMP Laboratory Tests 10/27/19 11:32 10/28/19 05:44 Microbiology Microbiology 10/26/19 Blood Culture - Preliminary, Resulted No growth after 24 hours . All specim... 10/26/19 Blood Culture - Preliminary, Resulted No growth after 24 hours . All specim... MATEO WOOTEN MD October 28, 2019 11:19
[2019-10-28 14:00] VITALS: BP 126/60
[2019-10-28] MEDS: WARFARIN SOD 3 MG TAB PO SCH (17:13)
[2019-10-28] MEDS: QUEtiapine FUMARATE 12.5 MG HALF-TAB PO SCH (20:42)
[2019-10-28] MEDS: risperiDONE 0.5 MG TAB PO SCH (20:43)
[2019-10-28] MEDS: MONTELUKAST 10 MG TAB PO SCH (20:43)
[2019-10-28] MEDS: PRAVASTATIN 20 MG TAB PO SCH (20:43)
[2019-10-28 22:00] VITALS: BP 149/80
[2019-10-29] MEDS: LEVOTHYROXINE 50MCG TABLET (0.05MG) PO SCH (05:49)
[2019-10-29 06:00] VITALS: BP 150/70
[2019-10-29 06:26] LABS: HEMATOCRIT 29.8 % (42.0-52.0); HEMOGLOBIN 9.9 g/dl (13.5-17.5); LYMPH # 0.7 10^3/uL (1.5-5.0); LYMPH % 13.2 % (24.0-44.0); MEAN CORPUSCULAR HEMOGLOBIN 33.1 pg (27.0-33.0); MEAN CORPUSCULAR HGB CONC 33.2 g/dl (32.0-36.5); MEAN CORPUSCULAR VOLUME 99.7 fl (80.0-96.0); MONO # 0.3 10^3/uL (0.0-0.8); MONO % 5.7 % (0.0-5.0); NEUTROPHILS # 4.2 10^3/uL (1.5-8.5); NEUTROPHILS % 80.5 % (36.0-66.0); PLATELET COUNT, AUTOMATED 219 10^3/uL (150-450); RED BLOOD COUNT 2.99 10^6/uL (4.30-6.10); WHITE BLOOD COUNT 5.2 10^3/uL (4.0-10.0)
[2019-10-29 06:39] LABS: INR 1.87; PROTHROMBIN TIME 21.3 SECONDS (11.8-14.0)
[2019-10-29 06:54] LABS: ALBUMIN 3.1 GM/DL (3.2-5.2); ALT/SGPT 18 U/L (12-78); BILIRUBIN,TOTAL 0.6 MG/DL (0.2-1.0); BLOOD UREA NITROGEN 30 MG/DL (7-18); CALCIUM LEVEL 8.5 MG/DL (8.8-10.2); CARBON DIOXIDE LEVEL 24 MEQ/L (21-32); CHLORIDE LEVEL 105 MEQ/L (98-107); CREATININE FOR GFR 0.82 MG/DL (0.70-1.30); GLOMERULAR FILTRATION RATE > 60.0 (>35); GLUCOSE, FASTING 103 MG/DL (70-100); POTASSIUM SERUM 4.8 MEQ/L (3.5-5.1); SODIUM LEVEL 136 MEQ/L (136-145); TOTAL PROTEIN 6.8 GM/DL (6.4-8.2)
--- NOTE | 2019-10-29 09:53 | IPNPDOC ---
Subjective Date Seen The patient was seen on 10/29/19. Subjective Chief Complaint/HPI During my examination, patient is sleeping comfortably, unable to vacuum up with the vocal and tactile stimuli. Patient seems in no respiratory or pulmonary distress at this time General: Reports: ROS Unobtainable Objective Physical Examination General Exam: Positive: Other (confused, paranoid and delirious) Chest Exam: Positive: Clear to auscultation, Normal air movement Heart Exam: Positive: Rate Normal, Normal S1, Normal S2 Abdomen Exam: Positive: Normal bowel sounds, Soft Extremity Exam: Positive: Other (, gouty tophi right back to) Assessment /Plan Problems (1) Delirium due to another medical condition, acute, hyperactive Status: Acute Problem Text: Patient's symptoms are consistent with acute hyperactive delirium secondary to most likely change of his familiar surroundings, change in his interaction with the familiar faces and time, and his baseline dementia Haldol 5 mg IM 1 dose has been ordered yesterday but did not have any effect on patient, he still remained moving around in bed and screaming and asking for help , But later when he received a Seroquel. He had some effect and has been sleeping since early this morning. . I will continue Seroquel 2.5 mg by mouth twice a day till patient completely recovered from his hyperactive delirium Also will prescribe antipsychotics when necessary for patient's safety and treatment for his acute hyperactive delirium (2) Gouty arthropathy, chronic, with tophi Status: Chronic Problem Text: On clinical examination, patient has a chronic gouty arthritis with office on right big toe, no acute changes noticed And as per Dr. Brown on the changes are chronic in nature and patient has missed 3 appointments to see him for follow-up No further workup needed at this point, patient can follow with Dr. Brown as an outpatient Once patient is clinically stable and delirium has resolved. He'll be discharged back to his care home (3) Elevated troponin Status: Acute Problem Text: Patient's troponins have a slowly tailed off, his last troponin is 0.11 Mildly elevated troponins, most likely secondary to his demand ischemia, which he does have a chronic history of CAD, CHF pt is completely asymptomatic., No further intervention indicated at this time (4) Chronic systolic CHF (congestive heart failure) Status: Chronic Problem Text: History of chronic systolic hypertension Patient is well compensated at the present time Continue home meds (5) Acute renal failure Status: Acute Problem Text: AK and C KD stage III Today's repeat labs are still pending , Most likely prerenal Patient received IV fluids in ED Continue current IV fluids and gentle hydration and will follow up BMP in a.m. (6) Atrial fibrillation Status: Chronic Problem Text: Ventricular rate is under control Continue telemetry monitoring Continue home meds. Patient is therapeutic on anticoagulation with Coumadin (7) CAD (coronary artery disease) Status: Chronic Problem Text: Well compensated, patient is completely asymptomatic Continue home meds Plan/VTE VTE Prophylaxis Ordered?: Yes VS, I&O, 24H, Fishbone Vital Signs/I&O Vital Signs Date Time Temp Pulse Resp B/P (MAP) Pulse Ox O2 Delivery O2 Flow Rate FiO2 10/29/19 06:00 98.7 72 18 150/70 (96) 95 Room Air I&O- Last 24 Hours up to 6 AM 10/29/19 06:00 Intake Total 1390 ml Output Total 0 ml Balance 1390 ml Laboratory Data 24H LABS Laboratory Tests 2 10/29/19 06:01: Immature Granulocyte % (Auto) 0.6, Neutrophils (%) (Auto) 80.5H, Lymphocytes (%) (Auto) 13.2L, Monocytes (%) (Auto) 5.7H, Eosinophils (%) (Auto) 0.0, Basophils (%) (Auto) 0.0, Neutrophils # (Auto) 4.2, Lymphocytes # (Auto) 0.7L, Monocytes # (Auto) 0.3, Eosinophils # (Auto) 0.0, Basophils # (Auto) 0.0, Nucleated Red Blood Cells % (auto) 0.0, Prothrombin Time 21.3H, Prothromb Time International Ratio 1.87, Anion Gap 7L, Glomerular Filtration Rate > 60.0, Calcium Level 8.5L, Total Bilirubin 0.6#, Aspartate Amino Transf (AST/SGOT) 21, Alanine Aminotransferase (ALT/SGPT) 18, Alkaline Phosphatase 73, Total Protein 6.8, Albumin 3.1L, Albumin/Globulin Ratio 0.8 CBC/BMP Laboratory Tests 10/29/19 06:01 Microbiology Microbiology 10/26/19 Blood Culture - Preliminary, Resulted No Growth after 48 hours. All Specime... 10/26/19 Blood Culture - Preliminary, Resulted No Growth after 48 hours. All Specime... JE,MATEO MD October 29, 2019 09:53
[2019-10-29] MEDS: D5W/0.45% SODIUM CHLORIDE 1,000 ML IV SCH ×2 (10:07→22:36)
[2019-10-29 10:09] LABS: MAGNESIUM LEVEL 2.1 MG/DL (1.8-2.4)
[2019-10-29] MEDS: predniSONE 20 MG TAB PO SCH ×2 (10:11→20:34)
[2019-10-29] MEDS: CO-ENZYME Q10 50 MG CAP PO SCH (10:11)
[2019-10-29] MEDS: NITROGLYCERIN 0.4 MG/HR PATCH TD SCH (10:11)
[2019-10-29] MEDS: METOPROLOL SUCC (TopROL XL) 50MG **XL** TAB PO SCH (10:12)
[2019-10-29] MEDS: VITAMIN D 1,000 INTERNATIONAL UNITS TABLET PO SCH (10:12)
[2019-10-29] MEDS: QUEtiapine FUMARATE 12.5 MG HALF-TAB PO SCH ×2 (10:12→20:33)
[2019-10-29] MEDS: allopurinoL 300 MG TAB PO SCH (10:12)
[2019-10-29] MEDS: TRIAMCINOLONE ACET 0.1% CREAM 80 GM TOP SCH ×2 (10:13→20:33)
[2019-10-29 14:00] VITALS: BP 143/81
[2019-10-29] MEDS: WARFARIN SOD 3 MG TAB PO SCH (17:24)
[2019-10-29] MEDS: PRAVASTATIN 20 MG TAB PO SCH (20:33)
[2019-10-29] MEDS: MONTELUKAST 10 MG TAB PO SCH (20:33)
[2019-10-29] MEDS: risperiDONE 0.5 MG TAB PO SCH (20:33)
[2019-10-29 22:00] VITALS: BP 138/74
[2019-10-30] MEDS: LEVOTHYROXINE 50MCG TABLET (0.05MG) PO SCH (06:08)
[2019-10-30 06:14] LABS: LYMPH # 0.8 10^3/uL (1.5-5.0); LYMPH % 14.9 % (24.0-44.0); MEAN CORPUSCULAR HEMOGLOBIN 33.2 pg (27.0-33.0); MEAN CORPUSCULAR HGB CONC 33.3 g/dl (32.0-36.5); MEAN CORPUSCULAR VOLUME 99.7 fl (80.0-96.0); MONO # 0.3 10^3/uL (0.0-0.8); NEUTROPHILS # 4.5 10^3/uL (1.5-8.5); NEUTROPHILS % 79.2 % (36.0-66.0); PLATELET COUNT, AUTOMATED 219 10^3/uL (150-450); RED BLOOD COUNT 3.01 10^6/uL (4.30-6.10); WHITE BLOOD COUNT 5.6 10^3/uL (4.0-10.0)
[2019-10-30 06:25] LABS: INR 1.56; PROTHROMBIN TIME 18.4 SECONDS (11.8-14.0)
[2019-10-30 06:35] LABS: ALBUMIN 2.9 GM/DL (3.2-5.2); ALT/SGPT 17 U/L (12-78); BILIRUBIN,TOTAL 0.3 MG/DL (0.2-1.0); BLOOD UREA NITROGEN 28 MG/DL (7-18); CALCIUM LEVEL 8.8 MG/DL (8.8-10.2); CARBON DIOXIDE LEVEL 25 MEQ/L (21-32); CHLORIDE LEVEL 105 MEQ/L (98-107); CREATININE FOR GFR 0.91 MG/DL (0.70-1.30); GLOMERULAR FILTRATION RATE > 60.0 (>35); GLUCOSE, FASTING 130 MG/DL (70-100); POTASSIUM SERUM 4.7 MEQ/L (3.5-5.1); SODIUM LEVEL 136 MEQ/L (136-145); TOTAL PROTEIN 6.6 GM/DL (6.4-8.2)
[2019-10-30] MEDS: VITAMIN D 1,000 INTERNATIONAL UNITS TABLET PO SCH (10:06)
[2019-10-30] MEDS: allopurinoL 300 MG TAB PO SCH (10:06)
[2019-10-30] MEDS: CO-ENZYME Q10 50 MG CAP PO SCH (10:06)
[2019-10-30] MEDS: QUEtiapine FUMARATE 12.5 MG HALF-TAB PO SCH (10:06)
[2019-10-30] MEDS: predniSONE 20 MG TAB PO SCH (10:06)
[2019-10-30 10:07] VITALS: BP 142/76
[2019-10-30] MEDS: TRIAMCINOLONE ACET 0.1% CREAM 80 GM TOP SCH (10:07)
[2019-10-30] MEDS: METOPROLOL SUCC (TopROL XL) 50MG **XL** TAB PO SCH (10:07)
[2019-10-30] MEDS: NITROGLYCERIN 0.4 MG/HR PATCH TD SCH (10:09)
--- NOTE | 2019-10-30 11:23 | DS.PDOC ---
Discharge Summary General Date of Admission October 27, 2019 at 00:44 Date of Discharge 10/30/19 Discharge Summary PROCEDURES PERFORMED DURING STAY: None. ADMITTING DIAGNOSES: 1. Chronicle gouty arthropathy. DISCHARGE DIAGNOSES: 1. Chronic gouty arthropathy, AKIresolved, deliriumresolved, CAD, C KD stage I II, status post permanent pacemaker placement, atrial fibrillation, chronic bilateral lower extremity edema, hypertension, PVD, mitral valve prolapse, hypothyroidism, chronic systolic CHF. COMPLICATIONS/CHIEF COMPLAINT: Gouty Arthropathy. HISTORY OF PRESENT ILLNESS: Jose is an 84-year-old male who resides at [facility] with PMHx of CAD s/p CABG, cardiomyopathy s/p bi-vent pac emaker, a-fib on coumadin, chronic LE edema, gouty tophi rt great toe, htn, pvd, mitral valve prolapse and severe insufficiency s/p valve replacement, hypothyroidism, hld, bph, and over active bladder, who presented to the ED for evaluation of his right great toe and foot. Per the ED, patient's intermediate caretakers felt his right great toe looked worse as compared to baseline and initiated a presentation to [facility]. In route, [facility] ([facility]) made decision to bypass their ED and instead have him come to [facility] for an MRI of the foot. Patient has a pacemaker in place in his left upper chest and as a result, MRI of the right foot was deferred. Patient himself does not feel his right foot and great toe appear to be any worse than his baseline and he has no associated complaints no pain, paresthesias, or discomfort of any kind. [facility] ED contacted Dr. Brown of wound care, whom patient follows with regularly. Findings from a CT scan of the right foot taken at [facility] on 10/[address] Brown who felt they were indicative of pt's baseline after debridement and was not concerned for possible osteomyelitis. Workup in the ED revealed initial elevated troponin of 0.26, with subsequent f/u of 0.28. Repeat EKGs were stable with a ventricular paced-rhythm. sCr was elevated at 1.35 (bl about 1-1.1), cbc showed macrocytic anemia, ESR 54, CRP 1.48, and therapeutic INR on coumadin of 2.31. Patient received a 500cc fluid bolus in ED, and was started on prednisone for the acute gout. He was also incontinent of urine and a condom catheter was placed. Upon time of admission, patient denied any chest pain, chest pressure, palpitations, shortness of breath, or pain of bilateral lower extremities. He was subsequently admitted under the care of the hospitalist service for f/u monitoring of troponin levels, acute kidney injury, and acute gout of right great toe . HOSPITAL COURSE: Patient was admitted with the chronic gouty arthritis with tophi On clinical examination, patient has a chronic gouty arthritis with office on right big toe, no acute changes noticed And as per Dr. Brown on the changes are chronic in nature and patient has missed 3 appointments to see him for follow-up No further workup needed at this point, patient can follow with Dr. Brown as an outpatient Patient not candidate for MRI secondary to metallic hardware in his body Continue all his previous medications as he is been receiving at intermediate Patient did develop delirium, which most likely hyper active during his stay in the hospital Patient's symptoms are consistent with acute hyperactive delirium secondary to most likely change of his familiar surroundings, change in his interaction with the familiar faces and time, and his baseline dementia He did receive a Haldol 1 mg IM 1 dose and later on started on Seroquel 12.5 mg by mouth twice a day He responded to antipsychotic. He well. He is up and alert at his baseline mental status today, cooperative, in no apparent distress We will DC his Seroquel at this time and will be discharged back to senior care facility.. He was also found to have Patient's troponins have a slowly tailed off, his last troponin is 0.11 Mildly elevated troponins, most likely secondary to his demand ischemia, which he does have a chronic history of CAD, CHF pt is completely asymptomatic., No further intervention indicated at this time History of chronic systolic hypertension Patient is well compensated at the present time Continue all previous medicines been taking as an outpatient Acute kidney injury and C KD stage III Most likely prerenal in origin Patient received some IV hydration with normalization of his renal function to his baseline. His creatinine today is 0.91 and BUN 28. DISCHARGE MEDICATIONS: Please see below. ALLERGIES: Please see below. PHYSICAL EXAMINATION ON DISCHARGE: VITAL SIGNS: Please see below. GENERAL: Within normal limits HEENT: Shanna extraocular muscles intact NECK: Supple CARDIOVASCULAR EXAMINATION: S1, S2, regular RESPIRATORY EXAMINATION: Clear to A&P ABDOMINAL EXAMINATION: Normal EXTREMITIES: No clubbing, cyanosis or edema SKIN: Normal NEUROLOGICAL EXAMINATION: No new focal motor sensory deficit PSYCHIATRIC EXAMINATION: Normal LABORATORY DATA: Please see below. IMAGING: Foot x-ray: There are changes of tophaceous gout with erosive changes. There is diffuse soft tissue swelling. There are new erosive changes at the IP joint of the great toe compared with the May 05, 2019 study. These are nonspecific as above. PROGNOSIS: Good ACTIVITY: As tolerated. DIET: As tolerated DISCHARGE PLAN: Chart back to [facility] DISPOSITION: Back to [facility]. DISCHARGE INSTRUCTIONS: 1. As per discharge instructions. ITEMS TO FOLLOWUP ON ON OUTPATIENT: 1. Follow-up with Dr. Dr. Brown as soon as possible. DISCHARGE CONDITION: Stable. TIME SPENT ON DISCHARGE: 38 minutes. Vital Signs/I&Os Vital Signs Date Time Temp Pulse Resp B/P (MAP) Pulse Ox O2 Delivery O2 Flow Rate FiO2 10/30/19 10:07 71 142/76 10/29/19 22:00 97.8 20 95 10/29/19 14:00 Room Air I&O- Last 24 Hours up to 6 AM 10/30/19 06:00 Intake Total 1000 ml Output Total 0 ml Balance 1000 ml Laboratory Data Labs 24H Laboratory Tests 2 10/30/19 05:31: Immature Granulocyte % (Auto) 0.9, Neutrophils (%) (Auto) 79.2H, Lymphocytes (%) (Auto) 14.9L, Monocytes (%) (Auto) 5.0, Eosinophils (%) (Auto) 0.0, Basophils (%) (Auto) 0.0, Neutrophils # (Auto) 4.5, Lymphocytes # (Auto) 0.8L, Monocytes # (Auto) 0.3, Eosinophils # (Auto) 0.0, Basophils # (Auto) 0.0, Nucleated Red Blood Cells % (auto) 0.0, Prothrombin Time 18.4H, Prothromb Time International Ratio 1.56, Anion Gap 6L, Glomerular Filtration Rate > 60.0, Calcium Level 8.8, Total Bilirubin 0.3, Aspartate Amino Transf (AST/SGOT) 16, Alanine Aminotransferase (ALT/SGPT) 17, Alkaline Phosphatase 69, Total Protein 6.6, Albumin 2.9L, Albumin/Globulin Ratio 0.8 10/30/19 10:27: CBC/BMP Laboratory Tests 10/30/19 05:31 Microbiology Microbiology 10/26/19 Blood Culture - Preliminary, Resulted No Growth after 72 hours. All specime... 10/26/19 Blood Culture - Preliminary, Resulted No Growth after 72 hours. All specime... Discharge Medications Scheduled Allopurinol (Zyloprim) 300 Mg Tablet, 300 MG PO DAILY, (Reported) Cholecalciferol (Vitamin D3) (Vitamin D3) 1,000 Unit Tablet, 1,000 UNITS PO DAILY, (Reported) Clindamycin Hcl (Clindamycin HCl) 150 Mg Capsule, 300 MG PO QID, (Reported) END ANTIBIOTIC ON 11/02/19 Furosemide (Furosemide) 20 Mg Tablet, 60 MG PO BID, (Reported) Levothyroxine Sodium (Levothyroxine Sodium) 50 Mcg Tablet, 50 MCG PO DAILY, (Reported) Metoprolol Succinate (Metoprolol Succinate) 50 Mg Tab.er.24h, 50 MG PO DAILY, (Reported) Mirabegron (Myrbetriq) 25 Mg Tab.er.24h, 25 MG PO DAILY, (Reported) Montelukast Sodium (Montelukast Sodium) 10 Mg Tablet, 10 MG PO QHS, (Reported) Nitroglycerin (Nitroglycerin Patch) 0.4 Mg/Hr Patch.td24, 0.4 MG TD DAILY, (Reported) Pravastatin Sodium (Pravastatin Sodium) 40 Mg Tablet, 40 MG PO QHS, (Reported) Risperidone (Risperidone) 0.5 Mg Tablet, 0.5 MG PO QHS, (Reported) Spironolactone (Spironolactone) 25 Mg Tablet, 25 MG PO DAILY, (Reported) Triamcinolone Acet (Triamcinolone Acetonide 0.1% Crm) 80 Gm Cream..g., 1 APLCT TOP BID, (Reported) APPLY THIN LAYER TO AFFCETED AREAS Ubidecarenone (Co Q-10) 100 Mg Capsule, 100 MG PO DAILY, (Reported) Warfarin Sodium (Warfarin Sodium) 6 Mg Tablet, 6 MG PO QHS, (Reported) Scheduled PRN Acetaminophen (Acetaminophen) 325 Mg Tablet, 325 MG PO Q6HP PRN for PAIN OR FEVER, (Reported) Bisacodyl (Dulcolax) 10 Mg Supp.rect, 10 MG [place] DAILY PRN for CONSTIPATION, (Reported) GIVE ONE DAY AFTER MILK OF MAG IF NO BM Magnesium Hydroxide (Milk of Magnesia) 400 Mg/5 Ml Oral.susp, 30 ML PO DAILY PRN for CONSTIPATION, (Reported) FOR NO BM IN 3 DAYS Nitroglycerin (Nitroglycerin) 0.4 Mg Tab.subl, 0.4 MG PO NITRO PRN for CHEST PAIN, (Reported) Sodium Phosphate,[place]-Dibasic (Fleet Enema) 133 Ml Enema, 1 PETE [place] DAILY PRN for CONSTIPATION, (Reported) IF SUPPOSITORY INEFFECTIVE Allergies Coded Allergies: No Known Allergies (Unverified , 05/04/19) MATEO WOOTEN MD October 30, 2019 11:23
== END 2019-10-30 13:03 | DRG 554 ==
LOC: M ED 19:49 → M ED INP 10-27 00:44 → ENRESERV 10-27 01:11 → M MSPAV 10-27 02:45
PROVIDERS: ADMIT Internal Medicine; ATTEND Internal Medicine
DX: M1A.9XX1 Chronic gout, unspecified, with tophus (tophi) (principal); I50.22 Chronic systolic (congestive) heart failure; N17.9 Acute kidney failure, unspecified; I48.20 Chronic atrial fibrillation, unspecified; E87.1 Hypo-osmolality and hyponatremia; I13.0 Hypertensive heart and chronic kidney disease with heart failure and stage 1 through stage 4 chronic kidney disease, or unspecified chronic kidney disease; N18.3 Chronic kidney disease, stage 3 (moderate); R41.0 Disorientation, unspecified; I25.10 Atherosclerotic heart disease of native coronary artery without angina pectoris; E03.9 Hypothyroidism, unspecified; I34.0 Nonrheumatic mitral (valve) insufficiency; Z95.0 Presence of cardiac pacemaker; Z79.899 Other long term (current) drug therapy; Z95.1 Presence of aortocoronary bypass graft; Z79.01 Long term (current) use of anticoagulants; Z95.2 Presence of prosthetic heart valve; N40.0 Benign prostatic hyperplasia without lower urinary tract symptoms; M51.36 Other intervertebral disc degeneration, lumbar region; M50.90 Cervical disc disorder, unspecified, unspecified cervical region; D53.9 Nutritional anemia, unspecified